=== PATIENT | male | born 1960 | race Caucasian/White ===

== ENCOUNTER 2018-04-22 15:10 | Inpatient (IN) | payer MEDICAID ==
[2018-04-17 12:02] VITALS: BMI 25.1
[2018-04-22] MEDS ORDERED: Bisacodyl 5mg EC Tab PO PRN (22:17)
--- NOTE | 2018-04-22 22:51 | CP.PCM.HP ---
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 He was initially admitted to [facility], did not meet criteria for TPA. Had full workup at [facility], and is now here for acute rehab. Denies CP/SOB. Denies n/v/d. States he has been constipated for several days. ROS: 14 systems reviewed, negative other than HPI MHx/SHx: None prior to this CVA Allergies: NKDA Medications: Per discharge med rec Family Hx: Several brothers with CAD/CABG, CVA, HLD Social Hx: Lives with family, tobacco use 20 years ago, no EtOH Surrogate Dec Mkr: , info on chart Present on Admission - Present on Admission Any Indicators Present on Admission: No Past Patient History - Past Medical History & Family History Past Medical History?: No - Past Social History Smoking Status: Never Smoked - CARDIAC Hx Cardiac Disorders: No - PULMONARY Hx Respiratory Disorders: No - NEUROLOGICAL HX Cerebrovascular Accident: Yes - HEENT Hx HEENT Problems: No - RENAL Hx Chronic Kidney Disease: No - ENDOCRINE/METABOLIC Hx Endocrine Disorders: No - HEMATOLOGICAL/ONCOLOGICAL Hx Blood Disorders: No - INTEGUMENTARY Hx Dermatological Problems: No - MUSCULOSKELETAL/RHEUMATOLOGICAL Hx Musculoskeletal Disorders: No Hx Falls: No - GASTROINTESTINAL Hx Gastrointestinal Disorders: No - GENITOURINARY/GYNECOLOGICAL Hx Genitourinary Disorders: No - PSYCHIATRIC Hx Psychophysiologic Disorder: No Hx Substance Use: No - SURGICAL HISTORY Hx Surgeries: No - ANESTHESIA Hx Anesthesia: No Meds Allergies/Adverse Reactions: Allergies Allergy/AdvReac Type Severity Reaction Status Date / Time No Known Allergies Allergy Verified 04/22/18 21:20 Physical Exam - Constitutional Appears: No Acute Distress - Head Exam Head Exam: ATRAUMATIC, NORMOCEPHALIC - Eye Exam Eye Exam: EOMI, PERRL - ENT Exam ENT Exam: Mucous Membranes Moist - Neck Exam Neck exam: Positive for: Full Rom - Respiratory Exam Respiratory Exam: Clear to Auscultation Bilateral, NORMAL BREATHING PATTERN - Cardiovascular Exam Cardiovascular Exam: REGULAR RHYTHM, +S1, +S2 - GI/Abdominal Exam GI & Abdominal Exam: Normal Bowel Sounds, Soft - Extremities Exam Extremities exam: Positive for: full ROM, normal inspection - Neurological Exam Neurological exam: Alert, Motor Sensory Deficit, Oriented x3 Additional comments: LUE and LLE with 0/5 strength, no movement. - Psychiatric Exam Psychiatric exam: Normal Affect, Normal Mood - Skin Skin Exam: Dry, Warm Assessment & Plan (1) Status post cerebrovascular accident Assessment and Plan: 57 y/o male with R MCA CVA with L sided hemiparesis. -Admit for acute rehab -Rehab/PT consult -? repeat of swallow study; currently crushed medications and pureed diet -Cont ASA, Statin -PRN dulcolax for constipation -SC lovenox for DVT PPx Status: Acute (2) HLD (hyperlipidemia) Status: Acute (3) DVT prophylaxis Status: Acute
[2018-04-22] MEDS: Bacitracin/Neomycin/Polymyxin 30GM OINT TOP SCH (23:46)
[2018-04-23 06:35] LABS: HEMOGLOBIN 14.3 g/dL (12.0-18.0); MEAN CELL VOLUME 82.3 fl (80.0-94.0); MEAN CORPUSCULAR HEMOGLOBIN 27.9 pg (27.0-31.0); MEAN CORPUSCULAR HGB CONC 33.9 g/dL (33.0-37.0); RBC 5.15 Mil/uL (4.40-5.90); RED CELL DISTRIBUTION WIDTH 12.9 % (11.5-14.5); WHITE BLOOD COUNT 9.6 K/uL (4.8-10.8)
[2018-04-23 06:53] LABS: BLOOD UREA NITROGEN 19 mg/dl (9-20); CALCIUM 11.6 mg/dL (8.4-10.2); GFR NON-AFRICAN AMERICAN > 60
[2018-04-23] MEDS: Enoxaparin 40 mg Syringe SC SCH (09:27)
[2018-04-23] MEDS: Bacitracin/Neomycin/Polymyxin 30GM OINT TOP SCH ×2 (09:27→17:14)
--- NOTE | 2018-04-23 12:21 | PSY.TMCNF ---
Nursing - Vital Signs Vital Signs (Last 8 hours): Vital Signs 04/23/18 08:33 Temperature 97.9 F Pulse Rate 58 L Respiratory 19 Rate Blood Pressure 155/97 H O2 Sat by Pulse 99 Oximetry - Medications/Other Issues Comment: To follow as per nutrition protocol - Bladder Management Bladder Pattern: Normal Voiding Method: Urinal, Diaper - Bowel Management Bowel Pattern: Normal, Constipated Physical Therapy - Transfers Sit to Stand: Maximum Assistance - Ambulation Level of Assistance: Maximum Assistance, Dependent - Assessment/Plan Assessment: Mark Hager presents with 1.) moderate cognitive deficits characterized by impaired memory, orientation, problem solving, reasoning, direction following, ability to answer yes/no and open-ended questions, and impaired insight negatively impacting his functional independence; 2.) moderate dysarthria characterized by L facial weakness with impaired articulatory precision and hoarse vocal quality with low vocal volume all negatively impacting intelligibility; and 3.) moderate oral dysphagia characterized by L facial weakness resulting in impaired bolus formation, mastication, and A-P transit for solid consistencies with impaired oral clearance; moderate stasis observed with solids which pt demonstrated minimal awareness of. Pharyngeally, pt demonstrated timely swallow initiation with appropriate laryngeal elevation and no overt s/s aspiration on PO trials tested, though pt is at risk for aspiration secondary to oral and cognitive deficits. Recommend maintenance of puree/thin liquids at this time. Pt would benefit from speech and dysphagia tx for improved intelligibility, cognition, and swallow function. - Provider License Number: [id number] Occupational Therapy - Arousal/Attention/Orientation Patient Orientation: Person, Place - Assessment/Plan Assessment: Mark Hager presents with 1.) moderate cognitive deficits characterized by impaired memory, orientation, problem solving, reasoning, direction following, ability to answer yes/no and open-ended questions, and impaired insight negatively impacting his functional independence; 2.) moderate dysarthria characterized by L facial weakness with impaired articulatory precision and hoarse vocal quality with low vocal volume all negatively impacting intelligibility; and 3.) moderate oral dysphagia characterized by L facial weakness resulting in impaired bolus formation, mastication, and A-P transit for solid consistencies with impaired oral clearance; moderate stasis observed with solids which pt demonstrated minimal awareness of. Pharyngeally, pt demonstrated timely swallow initiation with appropriate laryngeal elevation and no overt s/s aspiration on PO trials tested, though pt is at risk for aspiration secondary to oral and cognitive deficits. Recommend maintenance of puree/thin liquids at this time. Pt would benefit from speech and dysphagia tx for improved intelligibility, cognition, and swallow function. Speech Therapy - Consult Information Patient on Program: Yes Medical Diagnosis: CVA Treatment Diagnosis: -moderate cognitive deficits. -moderate dysarthria. - moderate oral dysphagia - Assessment Receptive Language Impairment: Moderate Problem Solving Impairment: Moderate Memory Impairment: Moderate Speech/Articulation Impairment: Moderate Dysphagia/Swallowing Impairment: Moderate Comment: puree/thin liquids - Plan Assessment: Mark Hager presents with 1.) moderate cognitive deficits characterized by impaired memory, orientation, problem solving, reasoning, direction following, ability to answer yes/no and open-ended questions, and impaired insight negatively impacting his functional independence; 2.) moderate dysarthria characterized by L facial weakness with impaired articulatory precision and hoarse vocal quality with low vocal volume all negatively impacting intelligibility; and 3.) moderate oral dysphagia characterized by L facial weakness resulting in impaired bolus formation, mastication, and A-P transit for solid consistencies with impaired oral clearance; moderate stasis observed with solids which pt demonstrated minimal awareness of. Pharyngeally, pt demonstrated timely swallow initiation with appropriate laryngeal elevation and no overt s/s aspiration on PO trials tested, though pt is at risk for aspiration secondary to oral and cognitive deficits. Recommend maintenance of puree/thin liquids at this time. Pt would benefit from speech and dysphagia tx for improved intelligibility, cognition, and swallow function. Plan: Continue Dysphagia Therapy, Continue Speech/Language Therapy Frequency: 3-5 times per week Duration: 1 week Goals/Timeframe: Please see IE completed 04/23/18 for complete goals/POC Recommendations: -Speech and dysphagia tx 3-5x/week. -Puree/thin liquids - Provider Therapist: Anju Petersen License Number: [id number] Recreational Therapy - Assessment Assessment/Plan: Mark Hager presents with 1.) moderate cognitive deficits characterized by impaired memory, orientation, problem solving, reasoning, direction following, ability to answer yes/no and open-ended questions, and impaired insight negatively impacting his functional independence; 2.) moderate dysarthria characterized by L facial weakness with impaired articulatory precision and hoarse vocal quality with low vocal volume all negatively impacting intelligibility; and 3.) moderate oral dysphagia characterized by L facial weakness resulting in impaired bolus formation, mastication, and A-P transit for solid consistencies with impaired oral clearance; moderate stasis observed with solids which pt demonstrated minimal awareness of. Pharyngeally, pt demonstrated timely swallow initiation with appropriate laryngeal elevation and no overt s/s aspiration on PO trials tested, though pt is at risk for aspiration secondary to oral and cognitive deficits. Recommend maintenance of puree/thin liquids at this time. Pt would benefit from speech and dysphagia tx for improved intelligibility, cognition, and swallow function. Nutrition - Current Diet Current Diet/ Supplement/ Feedings: Heart healthy pureed thin liquids - Appetite Percent Meal Consumed: 75-100% - Assessment/Goals/Time Frame Assessment/Goals/Time Frame: To follow as per nutrition protocol - Provider Provider: Yue Villegas RD Case Management - Discharge Plan Discharge Plan: Home with significant other/family Rehabilitation Plan - Treatment Plan Treatment Plan: Physical Therapy, Occupational Therapy, Speech, Dietary, Patient /Family Education - Recommendation Recommendation: Physical Therapy, Occupational Therapy, Speech, Dietary, Patient /Family Education - Discharge Plan Discharge to: Subacute
--- NOTE | 2018-04-23 13:11 | CP.PCM.PN ---
Subjective - Date & Time of Evaluation Date of Evaluation: 04/23/18 Time of Evaluation: 12:00 - Subjective Subjective: no acute complaints Objective - Vital Signs/Intake and Output Vital Signs (last 24 hours): Temp Pulse Resp BP Pulse Ox 97.9 F 58 L 19 155/97 H 99 04/23/18 08:33 04/23/18 08:33 04/23/18 08:33 04/23/18 08:33 04/23/18 08:33 - Medications Medications: Current Medications Aspirin (Aspirin Chewable) 81 mg PO DAILY [facility] Last Admin: 04/23/18 08:42 Dose: 81 mg Atorvastatin Calcium (Lipitor) 40 mg PO HS [facility] Bisacodyl (Dulcolax) 5 mg PO DAILY PRN PRN Reason: Constipation Enalapril Maleate (Vasotec) 20 mg PO DAILY [facility] Last Admin: 04/23/18 08:42 Dose: 20 mg Enoxaparin Sodium (Lovenox) 40 mg SC DAILY [facility] PRN Reason: Protocol Last Admin: 04/23/18 09:27 Dose: 40 mg Neomycin/Polymyxin/Bacitracin (Neosporin Antibiotic Oint) 1 applic TOP BID [facility] Last Admin: 04/23/18 09:27 Dose: 1 applic - Labs Labs: 04/23/18 05:30 04/23/18 05:30 - Head Exam Head Exam: ATRAUMATIC, NORMAL INSPECTION, NORMOCEPHALIC - Eye Exam Eye Exam: EOMI, Normal appearance, PERRL Pupil Exam: NORMAL ACCOMODATION - ENT Exam ENT Exam: Mucous Membranes Moist, Normal Exam - Neck Exam Neck Exam: Full ROM, Normal Inspection - Respiratory Exam Respiratory Exam: Clear to Ausculation Bilateral, NORMAL BREATHING PATTERN - Cardiovascular Exam Cardiovascular Exam: REGULAR RHYTHM - GI/Abdominal Exam GI & Abdominal Exam: Soft, Normal Bowel Sounds - Rectal Exam Rectal Exam: NORMAL INSPECTION - Exam External exam: NORMAL EXTERNAL EXAM - Extremities Exam Extremities Exam: Full ROM - Back Exam Back Exam: NORMAL INSPECTION - Neurological Exam Neurological Exam: Alert, Awake Neuro motor strength exam: Left Upper Extremity: 0, Right Upper Extremity: 3, Left Lower Extremity: 0, Right Lower Extremity: 3 - Psychiatric Exam Psychiatric exam: Normal Affect, Normal Mood - Skin Skin Exam: Dry, Intact Assessment and Plan (1) DVT prophylaxis Status: Acute (2) HLD (hyperlipidemia) Status: Acute (3) Status post cerebrovascular accident Assessment & Plan: plan for physical, occupational rec and speech therapy Status: Acute
--- NOTE | 2018-04-23 13:12 | PCM.OPOC ---
Physiatry Overall Plan of Care - Overall Plan of Care Estimated Length of Stay in Weeks: 3 Rehab Impairment: Mobility, Gait, Cognition, Speech, Balance, Coordination Etiologic Diagnosis: Cerebrovascular Accident Rehab/Medical Prognosis: Fair - Anticipated Interventions Physical Therapy:: Yes Occupational Therapy:: Yes Speech Therapy:: Yes Recreational Therapy:: Yes - Therapy Goals Bed Mobility: Supervision Ambulation: Contact Guard Functional Positional Changes:: Supervision - Functional Outcomes Functional Outcomes: fair - Discharge Plan Identification of Barriers to Discharge: Cognition Discharge Destination: Subacute
--- NOTE | 2018-04-23 13:15 | CP.PCM.CON ---
History of Present Illness - History of Present Illness History of Present Illness: 57 year old patient with left hemiplegia secondary to CVA, R MCA Review of Systems - Neurological Neurological: Abnormal Gait, Lack of Coordination, Weakness Past Patient History - Past Medical History & Family History Past Medical History?: No - Past Social History Smoking Status: Never Smoked - CARDIAC Hx Cardiac Disorders: No - PULMONARY Hx Respiratory Disorders: No - NEUROLOGICAL HX Cerebrovascular Accident: Yes - HEENT Hx HEENT Problems: No - RENAL Hx Chronic Kidney Disease: No - ENDOCRINE/METABOLIC Hx Endocrine Disorders: No - HEMATOLOGICAL/ONCOLOGICAL Hx Blood Disorders: No - INTEGUMENTARY Hx Dermatological Problems: No - MUSCULOSKELETAL/RHEUMATOLOGICAL Hx Falls: Yes - GASTROINTESTINAL Hx Gastrointestinal Disorders: No - GENITOURINARY/GYNECOLOGICAL Hx Genitourinary Disorders: No - PSYCHIATRIC Hx Substance Use: No - SURGICAL HISTORY Hx Surgeries: No - ANESTHESIA Hx Anesthesia: No Meds Allergies/Adverse Reactions: Allergies Allergy/AdvReac Type Severity Reaction Status Date / Time No Known Allergies Allergy Verified 04/22/18 21:20 - Medications Medications: Current Medications Aspirin (Aspirin Chewable) 81 mg PO DAILY [facility] Last Admin: 04/23/18 08:42 Dose: 81 mg Atorvastatin Calcium (Lipitor) 40 mg PO HS [facility] Bisacodyl (Dulcolax) 5 mg PO DAILY PRN PRN Reason: Constipation Enalapril Maleate (Vasotec) 20 mg PO DAILY [facility] Last Admin: 04/23/18 08:42 Dose: 20 mg Enoxaparin Sodium (Lovenox) 40 mg SC DAILY [facility] PRN Reason: Protocol Last Admin: 04/23/18 09:27 Dose: 40 mg Neomycin/Polymyxin/Bacitracin (Neosporin Antibiotic Oint) 1 applic TOP BID [facility] Last Admin: 04/23/18 09:27 Dose: 1 applic Physical Exam - Head Exam Head Exam: ATRAUMATIC, NORMAL INSPECTION, NORMOCEPHALIC - Eye Exam Eye Exam: EOMI, Normal appearance, PERRL Pupil Exam: NORMAL ACCOMODATION, PERRL - ENT Exam ENT Exam: Mucous Membranes Moist, Normal Exam - Neck Exam Neck exam: Positive for: Normal Inspection - Respiratory Exam Respiratory Exam: Clear to Auscultation Bilateral, NORMAL BREATHING PATTERN - Cardiovascular Exam Cardiovascular Exam: REGULAR RHYTHM - GI/Abdominal Exam GI & Abdominal Exam: Normal Bowel Sounds - Rectal Exam Rectal Exam: NORMAL INSPECTION - Exam External exam: NORMAL EXTERNAL EXAM - Extremities Exam Extremities exam: Positive for: normal inspection - Back Exam Back exam: NORMAL INSPECTION - Neurological Exam Neurological exam: Alert, CN II-XII Intact Additional comments: left hemiplegia left sided weakness - Psychiatric Exam Psychiatric exam: Normal Affect, Normal Mood - Skin Skin Exam: Normal Color Results - Vital Signs Recent Vital Signs: Last Vital Signs Temp 97.9 F 04/23/18 08:33 Pulse 58 L 04/23/18 08:33 Resp 19 04/23/18 08:33 BP 155/97 H 04/23/18 08:33 Pulse Ox 99 04/23/18 08:33 - Labs Result Diagrams: 04/23/18 05:30 04/23/18 05:30 Labs: Laboratory Results - last 24 hr 04/23/18 04/23/18 05:30 05:30 WBC 9.6 RBC 5.15 Hgb 14.3 Hct 42.3 MCV 82.3 MCH 27.9 MCHC 33.9 RDW 12.9 Plt Count 189 Sodium 140 Potassium 3.8 Chloride 104 Carbon Dioxide 30 Anion Gap 10 BUN 19 Creatinine 1.0 Est GFR ( Amer) > 60 Est GFR (Non-Af Amer) > 60 Random Glucose 100 Calcium 11.6 H Assessment & Plan (1) DVT prophylaxis Status: Acute (2) HLD (hyperlipidemia) Status: Acute (3) Status post cerebrovascular accident Assessment and Plan: plan for overall plan of care written, physical, occupational, rec and speech therapy Status: Acute
--- NOTE | 2018-04-23 13:21 | CP.PCM.CON ---
History of Present Illness - History of Present Illness History of Present Illness: Neurology Consultation Note: Mr. Hager is a 57-year-old man who had a large right MCA acute ischemic stroke on 04/17 and is now in acute rehab for recovery. He was started on aspirin and high dose statin for secondary stroke prevention. He has significant left sided deficits. Neurology was consulted to assist with the management and care. Review of Systems - Review of Systems All systems: reviewed and no additional remarkable complaints except Past Patient History - Past Medical History & Family History Past Medical History?: No - Past Social History Smoking Status: Never Smoked - CARDIAC Hx Cardiac Disorders: No - PULMONARY Hx Respiratory Disorders: No - NEUROLOGICAL HX Cerebrovascular Accident: Yes - HEENT Hx HEENT Problems: No - RENAL Hx Chronic Kidney Disease: No - ENDOCRINE/METABOLIC Hx Endocrine Disorders: No - HEMATOLOGICAL/ONCOLOGICAL Hx Blood Disorders: No - INTEGUMENTARY Hx Dermatological Problems: No - MUSCULOSKELETAL/RHEUMATOLOGICAL Hx Falls: Yes - GASTROINTESTINAL Hx Gastrointestinal Disorders: No - GENITOURINARY/GYNECOLOGICAL Hx Genitourinary Disorders: No - PSYCHIATRIC Hx Substance Use: No - SURGICAL HISTORY Hx Surgeries: No - ANESTHESIA Hx Anesthesia: No Meds Allergies/Adverse Reactions: Allergies Allergy/AdvReac Type Severity Reaction Status Date / Time No Known Allergies Allergy Verified 04/22/18 21:20 - Medications Medications: Current Medications Aspirin (Aspirin Chewable) 81 mg PO DAILY [facility] Last Admin: 04/23/18 08:42 Dose: 81 mg Atorvastatin Calcium (Lipitor) 40 mg PO HS [facility] Bisacodyl (Dulcolax) 5 mg PO DAILY PRN PRN Reason: Constipation Enalapril Maleate (Vasotec) 20 mg PO DAILY [facility] Last Admin: 04/23/18 08:42 Dose: 20 mg Enoxaparin Sodium (Lovenox) 40 mg SC DAILY [facility] PRN Reason: Protocol Last Admin: 04/23/18 09:27 Dose: 40 mg Neomycin/Polymyxin/Bacitracin (Neosporin Antibiotic Oint) 1 applic TOP BID [facility] Last Admin: 04/23/18 09:27 Dose: 1 applic Physical Exam - Neurological Exam Neurological exam: CN II-XII Intact, Oriented x3 Additional comments: Dysarthria noted. Left side facial droop, hemiplegia, hemisensory loss, reflexes are brisk with upgoing plantar responses. NIHSS = 12 Results - Vital Signs Recent Vital Signs: Last Vital Signs Temp 97.9 F 04/23/18 08:33 Pulse 58 L 04/23/18 08:33 Resp 19 04/23/18 08:33 BP 155/97 H 04/23/18 08:33 Pulse Ox 99 04/23/18 08:33 - Labs Result Diagrams: 04/23/18 05:30 04/23/18 05:30 Labs: Laboratory Results - last 24 hr 04/23/18 04/23/18 05:30 05:30 WBC 9.6 RBC 5.15 Hgb 14.3 Hct 42.3 MCV 82.3 MCH 27.9 MCHC 33.9 RDW 12.9 Plt Count 189 Sodium 140 Potassium 3.8 Chloride 104 Carbon Dioxide 30 Anion Gap 10 BUN 19 Creatinine 1.0 Est GFR ( Amer) > 60 Est GFR (Non-Af Amer) > 60 Random Glucose 100 Calcium 11.6 H Assessment & Plan (1) Status post cerebrovascular accident Assessment and Plan: Continue aspirin 81 mg daily and Lipitor 40 for secondary stroke prevention. Normalize BP. PT/OT per the care plan. DVT Px and hydration are recommended. The patient is a young man, with no significant past medical history, and origin of the stroke is still not determined. It may be cryptogenic stroke of cardio-embolic origin with possible cryptogenic atrial fibrillation. I recommend cardiac consultation with possible insertion of Linq device. Neurology will follow. Thank you. Status: Acute
--- NOTE | 2018-04-23 15:58 | CP.PCM.PN ---
Subjective - Date & Time of Evaluation Date of Evaluation: 04/23/18 Time of Evaluation: 16:00 - Subjective Subjective: Patient seen and examined . Sitting in the wheelchair in NAD. States that has not been able to sleep for 4 days. Denies any pain or discomfort. No acute issues overnight Participating with PT Objective - Vital Signs/Intake and Output Vital Signs (last 24 hours): Temp Pulse Resp BP Pulse Ox 97.9 F 58 L 19 155/97 H 99 04/23/18 08:33 04/23/18 08:33 04/23/18 08:33 04/23/18 08:33 04/23/18 08:33 - Medications Medications: Current Medications Aspirin (Aspirin Chewable) 81 mg PO DAILY [facility] Last Admin: 04/23/18 08:42 Dose: 81 mg Atorvastatin Calcium (Lipitor) 40 mg PO HS [facility] Bisacodyl (Dulcolax) 5 mg PO DAILY PRN PRN Reason: Constipation Enalapril Maleate (Vasotec) 20 mg PO DAILY [facility] Last Admin: 04/23/18 08:42 Dose: 20 mg Enoxaparin Sodium (Lovenox) 40 mg SC DAILY [facility] PRN Reason: Protocol Last Admin: 04/23/18 09:27 Dose: 40 mg Neomycin/Polymyxin/Bacitracin (Neosporin Antibiotic Oint) 1 applic TOP BID [facility] Last Admin: 04/23/18 09:27 Dose: 1 applic - Labs Labs: 04/23/18 05:30 04/23/18 05:30 - Constitutional Appears: Non-toxic, No Acute Distress - Head Exam Head Exam: ATRAUMATIC, NORMOCEPHALIC - Eye Exam Eye Exam: EOMI, PERRL Pupil Exam: NORMAL ACCOMODATION - ENT Exam ENT Exam: Mucous Membranes Moist, Normal Exam - Neck Exam Neck Exam: Full ROM - Respiratory Exam Respiratory Exam: Clear to Ausculation Bilateral, NORMAL BREATHING PATTERN. absent: Rales, Rhonchi, Wheezes - Cardiovascular Exam Cardiovascular Exam: REGULAR RHYTHM, RRR, +S1, +S2. absent: JVD - GI/Abdominal Exam GI & Abdominal Exam: Soft, Normal Bowel Sounds. 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 transferred to acute rehab for PT. Denies CP/SOB. Denies n/v/ d. Able to have a BM today but states that has not been able to sleep for 4 days 1. Status post cerebrovascular accident physiatry consult Continue PT /OT / speech therapy On ASA, Statin BP control 2. Hypertension BP uncontrolled Continue Enalapril 20 mg po and start Norvasc 5 mg po daily 3. HLD (hyperlipidemia) on statin 4.DVT prophylaxis lovenox
[2018-04-24] MEDS: Enoxaparin 40 mg Syringe SC SCH (09:17)
[2018-04-24] MEDS: Bacitracin/Neomycin/Polymyxin 30GM OINT TOP SCH ×2 (09:18→16:43)
--- NOTE | 2018-04-24 10:35 | CP.PCM.CON ---
History of Present Illness - History of Present Illness History of Present Illness: cardiology consult note for Dr. 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 Eevent occured on 04/17/2018. [facility] for acute rehab. PMHx: denies ALL: NKDA Meds: no meds prior to admission at [facility] [place], current meds as per med rec Psurghx: Family Hx: brothers with CAD, Stroke, HLD Social Hx: former smoker, no abuse for >20 years, denies drugs Past Patient History - Past Medical History & Family History Past Medical History?: No - Past Social History Smoking Status: Never Smoked - CARDIAC Hx Cardiac Disorders: No - PULMONARY Hx Respiratory Disorders: No - NEUROLOGICAL HX Cerebrovascular Accident: Yes - HEENT Hx HEENT Problems: No - RENAL Hx Chronic Kidney Disease: No - ENDOCRINE/METABOLIC Hx Endocrine Disorders: No - HEMATOLOGICAL/ONCOLOGICAL Hx Blood Disorders: No - INTEGUMENTARY Hx Dermatological Problems: No - MUSCULOSKELETAL/RHEUMATOLOGICAL Hx Falls: Yes - GASTROINTESTINAL Hx Gastrointestinal Disorders: No - GENITOURINARY/GYNECOLOGICAL Hx Genitourinary Disorders: No - PSYCHIATRIC Hx Substance Use: No - SURGICAL HISTORY Hx Surgeries: No - ANESTHESIA Hx Anesthesia: No Meds Allergies/Adverse Reactions: Allergies Allergy/AdvReac Type Severity Reaction Status Date / Time No Known Allergies Allergy Verified 04/22/18 21:20 - Medications Medications: Current Medications Aspirin (Aspirin Chewable) 81 mg PO DAILY [facility] Last Admin: 04/24/18 09:17 Dose: 81 mg Atorvastatin Calcium (Lipitor) 40 mg PO HS [facility] Last Admin: 04/23/18 21:28 Dose: 40 mg Bisacodyl (Dulcolax) 5 mg PO DAILY PRN PRN Reason: Constipation Enalapril Maleate (Vasotec) 20 mg PO DAILY [facility] Last Admin: 04/24/18 09:18 Dose: 20 mg Enoxaparin Sodium (Lovenox) 40 mg SC DAILY [facility] PRN Reason: Protocol Last Admin: 04/24/18 09:17 Dose: 40 mg Neomycin/Polymyxin/Bacitracin (Neosporin Antibiotic Oint) 1 applic TOP BID [facility] Last Admin: 04/24/18 09:18 Dose: 1 applic Physical Exam - Constitutional Appears: Non-toxic, No Acute Distress - Head Exam Head Exam: ATRAUMATIC, NORMOCEPHALIC - ENT Exam ENT Exam: Mucous Membranes Moist - Respiratory Exam Respiratory Exam: Clear to Auscultation Bilateral, NORMAL BREATHING PATTERN. absent: Rales, Rhonchi, Wheezes - Cardiovascular Exam Cardiovascular Exam: REGULAR RHYTHM, RRR, +S1, +S2. absent: JVD, Rubs - Neurological Exam Neurological exam: Alert, Oriented x3 Additional comments: left facial droop LUE paresis Results - Vital Signs Recent Vital Signs: Last Vital Signs Temp 97.1 F L 04/24/18 08:41 Pulse 56 L 04/24/18 08:41 Resp 19 04/24/18 08:41 BP 179/99 H 04/24/18 08:41 Pulse Ox 96 04/24/18 08:41 - Labs Result Diagrams: 04/23/18 05:30 04/23/18 05:30 Assessment & Plan (1) Status post cerebrovascular accident Status: Acute (2) Hypertension Status: Acute (3) HLD (hyperlipidemia) Status: Chronic
--- NOTE | 2018-04-24 17:34 | CP.PCM.PN ---
Subjective - Date & Time of Evaluation Date of Evaluation: 04/24/18 Time of Evaluation: 13:00 - Subjective Subjective: no acute complaints at present Objective - Vital Signs/Intake and Output Vital Signs (last 24 hours): Temp Pulse Resp BP Pulse Ox 97.1 F L 56 L 19 179/99 H 96 04/24/18 08:41 04/24/18 08:41 04/24/18 08:41 04/24/18 08:41 04/24/18 08:41 - Medications Medications: Current Medications Aspirin (Aspirin Chewable) 81 mg PO DAILY [facility] Last Admin: 04/24/18 09:17 Dose: 81 mg Atorvastatin Calcium (Lipitor) 40 mg PO HS [facility] Last Admin: 04/23/18 21:28 Dose: 40 mg Bisacodyl (Dulcolax) 5 mg PO DAILY PRN PRN Reason: Constipation Enalapril Maleate (Vasotec) 20 mg PO DAILY [facility] Last Admin: 04/24/18 09:18 Dose: 20 mg Enoxaparin Sodium (Lovenox) 40 mg SC DAILY [facility] PRN Reason: Protocol Last Admin: 04/24/18 09:17 Dose: 40 mg Neomycin/Polymyxin/Bacitracin (Neosporin Antibiotic Oint) 1 applic TOP BID [facility] Last Admin: 04/24/18 16:43 Dose: 1 applic - Labs Labs: 04/23/18 05:30 04/23/18 05:30 - Head Exam Head Exam: ATRAUMATIC, NORMAL INSPECTION, NORMOCEPHALIC - Eye Exam Eye Exam: EOMI, Normal appearance Pupil Exam: NORMAL ACCOMODATION, PERRL - ENT Exam ENT Exam: Mucous Membranes Moist - Neck Exam Neck Exam: Full ROM - Respiratory Exam Respiratory Exam: Clear to Ausculation Bilateral - Cardiovascular Exam Cardiovascular Exam: REGULAR RHYTHM - GI/Abdominal Exam GI & Abdominal Exam: Soft, Normal Bowel Sounds - Rectal Exam Rectal Exam: NORMAL INSPECTION - Exam External exam: NORMAL EXTERNAL EXAM - Extremities Exam Extremities Exam: Full ROM, Normal Capillary Refill, Normal Inspection - Back Exam Back Exam: NORMAL INSPECTION - Neurological Exam Neurological Exam: Alert, Awake Neuro motor strength exam: Left Upper Extremity: 0, Right Upper Extremity: 3, Left Lower Extremity: 5 (increase in tone), Right Lower Extremity: 3 - Psychiatric Exam Psychiatric exam: Normal Affect, Normal Mood - Skin Skin Exam: Normal Color Assessment and Plan (1) DVT prophylaxis Status: Acute (2) HLD (hyperlipidemia) Status: Chronic (3) Status post cerebrovascular accident Assessment & Plan: physical, occupational therapy discussed patient with Dr Heck neurology to ask for cardiology consult. continue present program Status: Acute
[2018-04-25] MEDS: Enoxaparin 40 mg Syringe SC SCH (09:05)
[2018-04-25] MEDS: Bacitracin/Neomycin/Polymyxin 30GM OINT TOP SCH ×2 (09:06→17:28)
--- NOTE | 2018-04-25 10:24 | CP.PCM.PN ---
Subjective - Date & Time of Evaluation Date of Evaluation: 04/25/18 Time of Evaluation: 10:21 - Subjective Subjective: pt doing well no complaints hd stable nad Objective - Vital Signs/Intake and Output Vital Signs (last 24 hours): Temp Pulse Resp BP Pulse Ox 97.3 F L 61 18 180/88 H 98 04/25/18 08:10 04/25/18 08:10 04/25/18 08:10 04/25/18 08:10 04/25/18 08:10 - Medications Medications: Current Medications Aspirin (Aspirin Chewable) 81 mg PO DAILY [facility] Last Admin: 04/25/18 09:05 Dose: 81 mg Atorvastatin Calcium (Lipitor) 40 mg PO HS [facility] Last Admin: 04/24/18 21:32 Dose: 40 mg Bisacodyl (Dulcolax) 5 mg PO DAILY PRN PRN Reason: Constipation Enalapril Maleate (Vasotec) 20 mg PO DAILY [facility] Last Admin: 04/25/18 09:05 Dose: 20 mg Enoxaparin Sodium (Lovenox) 40 mg SC DAILY [facility] PRN Reason: Protocol Last Admin: 04/25/18 09:05 Dose: 40 mg Neomycin/Polymyxin/Bacitracin (Neosporin Antibiotic Oint) 1 applic TOP BID [facility] Last Admin: 04/25/18 09:06 Dose: 1 applic - Labs Labs: 04/23/18 05:30 04/23/18 05:30 - Constitutional Appears: Non-toxic, No Acute Distress - Head Exam Head Exam: ATRAUMATIC, NORMOCEPHALIC - Eye Exam Eye Exam: EOMI, Normal appearance - ENT Exam ENT Exam: Mucous Membranes Moist, Normal Oropharynx - Neck Exam Neck Exam: Normal Inspection - Respiratory Exam Respiratory Exam: Clear to Ausculation Bilateral, NORMAL BREATHING PATTERN - Cardiovascular Exam Cardiovascular Exam: RRR, +S1, +S2 - GI/Abdominal Exam GI & Abdominal Exam: Soft, Normal Bowel Sounds - Extremities Exam Extremities Exam: Normal Capillary Refill - Neurological Exam Neurological Exam: Alert, Awake - Psychiatric Exam Psychiatric exam: Flat Affect, Normal Mood - Skin Skin Exam: Dry, Warm Assessment and Plan - Assessment and Plan (Free Text) Plan: 57 y/o male with no diagnosed chronic medical illnesses who suffered a R MCA stroke with subsequent LUE/LLE hemiparesis on 04/17, initially admitted to [facility] transferred to acute rehab for PT. Denies CP/SOB. Denies n/v/ d. Able to have a BM today but states that has not been able to sleep for 4 days 1. Status post cerebrovascular accident physiatry consult Continue PT /OT / speech therapy On ASA, Statin BP control 2. Hypertension BP uncontrolled Continue Enalapril 20 mg po and start Norvasc 5 mg po daily 3. HLD (hyperlipidemia) on statin 4.DVT prophy
[2018-04-26 06:59] LABS: HEMOGLOBIN 14.2 g/dL (12.0-18.0); MEAN CELL VOLUME 83.8 fl (80.0-94.0); MEAN CORPUSCULAR HEMOGLOBIN 27.3 pg (27.0-31.0); MEAN CORPUSCULAR HGB CONC 32.6 g/dL (33.0-37.0); RBC 5.21 Mil/uL (4.40-5.90); RED CELL DISTRIBUTION WIDTH 12.8 % (11.5-14.5); WHITE BLOOD COUNT 8.5 K/uL (4.8-10.8)
[2018-04-26 07:20] LABS: BLOOD UREA NITROGEN 18 mg/dl (9-20); CALCIUM 12.2 mg/dL (8.4-10.2); GFR NON-AFRICAN AMERICAN > 60
[2018-04-26] MEDS: Enoxaparin 40 mg Syringe SC SCH (08:11)
[2018-04-26] MEDS: Bacitracin/Neomycin/Polymyxin 30GM OINT TOP SCH ×2 (08:11→17:47)
[2018-04-27] MEDS: Bacitracin/Neomycin/Polymyxin 30GM OINT TOP SCH ×2 (09:25→17:00)
[2018-04-27] MEDS: Enoxaparin 40 mg Syringe SC SCH (09:26)
--- NOTE | 2018-04-27 17:23 | CP.PCM.PN ---
Subjective - Date & Time of Evaluation Date of Evaluation: 04/27/18 Time of Evaluation: 17:22 - Subjective Subjective: Mr. Hager was seen and examined today at bedside. His family was present. He had no new complaints. He continues to have right side hemiplegia. Objective - Vital Signs/Intake and Output Vital Signs (last 24 hours): Temp Pulse Resp BP Pulse Ox 97.2 F L 66 18 149/89 97 04/27/18 08:00 04/27/18 08:00 04/27/18 08:00 04/27/18 08:00 04/27/18 08:00 - Medications Medications: Current Medications Aspirin (Aspirin Chewable) 81 mg PO DAILY [facility] Last Admin: 04/27/18 09:26 Dose: 81 mg Atorvastatin Calcium (Lipitor) 40 mg PO HS [facility] Last Admin: 04/26/18 21:48 Dose: 40 mg Bisacodyl (Dulcolax) 5 mg PO DAILY PRN PRN Reason: Constipation Enalapril Maleate (Vasotec) 20 mg PO DAILY [facility] Last Admin: 04/27/18 09:26 Dose: 20 mg Enoxaparin Sodium (Lovenox) 40 mg SC DAILY [facility] PRN Reason: Protocol Last Admin: 04/27/18 09:26 Dose: 40 mg Neomycin/Polymyxin/Bacitracin (Neosporin Antibiotic Oint) 1 applic TOP BID [facility] Last Admin: 04/27/18 09:25 Dose: 1 applic - Labs Labs: 04/26/18 05:20 04/26/18 05:20 - Neurological Exam Additional comments: Neurologically unchanged compared with previous examination. Assessment and Plan (1) Status post cerebrovascular accident Assessment & Plan: Large right MCA stroke syndrome. Will continue aspirin and statin for secondary stroke prevention. PT/OT per rehab team. Neurology will follow. Status: Acute
[2018-04-28] MEDS: Enoxaparin 40 mg Syringe SC SCH ×2 (08:55→12:26)
[2018-04-28] MEDS: Bacitracin/Neomycin/Polymyxin 30GM OINT TOP SCH ×2 (08:55→17:11)
--- NOTE | 2018-04-28 18:03 | CP.PCM.PN ---
Subjective - Date & Time of Evaluation Date of Evaluation: 04/28/18 Time of Evaluation: 11:00 - Subjective Subjective: Patient seen and examined. Complained of not sleeping for 2 days Objective - Vital Signs/Intake and Output Vital Signs (last 24 hours): Temp Pulse Resp BP Pulse Ox 96.8 F L 81 18 174/76 H 99 04/28/18 10:00 04/28/18 10:00 04/28/18 10:00 04/28/18 10:00 04/28/18 10:00 - Medications Medications: Current Medications Aspirin (Aspirin Chewable) 81 mg PO DAILY [facility] Last Admin: 04/28/18 08:55 Dose: 81 mg Atorvastatin Calcium (Lipitor) 40 mg PO HS [facility] Last Admin: 04/27/18 21:36 Dose: 40 mg Bisacodyl (Dulcolax) 5 mg PO DAILY PRN PRN Reason: Constipation Enalapril Maleate (Vasotec) 20 mg PO DAILY [facility] Last Admin: 04/28/18 08:55 Dose: 20 mg Enoxaparin Sodium (Lovenox) 40 mg SC DAILY [facility] PRN Reason: Protocol Last Admin: 04/28/18 12:26 Dose: Not Given Neomycin/Polymyxin/Bacitracin (Neosporin Antibiotic Oint) 1 applic TOP BID [facility] Last Admin: 04/28/18 17:11 Dose: 1 applic Zolpidem Tartrate (Ambien) 5 mg PO [facility] - Labs Labs: 04/26/18 05:20 04/26/18 05:20 - Constitutional Appears: No Acute Distress - Head Exam Head Exam: ATRAUMATIC - Eye Exam Eye Exam: absent: Scleral icterus - ENT Exam ENT Exam: Mucous Membranes Moist - Neck Exam Neck Exam: absent: Meningismus - Respiratory Exam Respiratory Exam: absent: Rales, Rhonchi, Wheezes, Respiratory Distress - Cardiovascular Exam Cardiovascular Exam: REGULAR RHYTHM, +S1, +S2 - GI/Abdominal Exam GI & Abdominal Exam: Soft. absent: Tenderness - Rectal Exam Rectal Exam: Deferred - Neurological Exam Neurological Exam: Alert, Oriented x3 - Psychiatric Exam Psychiatric exam: Normal Affect - Skin Skin Exam: Dry, Intact Assessment and Plan - Assessment and Plan (Free Text) Assessment: 57 yo male with no significant PMH was initially admitted at [facility] because of Right MCA CVA on 04/17/18. He was transferred to Acute Rehab on 04/22/18 for continuation of PT. 1. Status post cerebrovascular accident Continue PT /OT / speech therapy On ASA, Statin monitor and control BP 2. Hypertension BP elevated increase Enalapril to 20mg PO BID 3. HLD (hyperlipidemia) on statin 4.DVT prophylaxis Lovenox 40mg SC daily
[2018-04-29 06:28] LABS: HEMOGLOBIN 14.3 g/dL (12.0-18.0); MEAN CELL VOLUME 82.8 fl (80.0-94.0); MEAN CORPUSCULAR HGB CONC 33.8 g/dL (33.0-37.0); RBC 5.11 Mil/uL (4.40-5.90); RED CELL DISTRIBUTION WIDTH 12.7 % (11.5-14.5); WHITE BLOOD COUNT 9.7 K/uL (4.8-10.8)
[2018-04-29 06:29] LABS: BLOOD UREA NITROGEN 15 mg/dl (9-20); CALCIUM 12.7 mg/dL (8.4-10.2); GFR NON-AFRICAN AMERICAN > 60
[2018-04-29] MEDS: Enoxaparin 40 mg Syringe SC SCH (09:00)
[2018-04-29] MEDS: Bacitracin/Neomycin/Polymyxin 30GM OINT TOP SCH ×2 (09:01→17:38)
--- NOTE | 2018-04-29 20:09 | PN ---
DATE: 04/29/2018 SUBJECTIVE: A 57-year-old male admitted to acute inpatient rehab program with diagnosis of acute CVA with arm and leg weakness. No acute complaints noted at present. PHYSICAL EXAMINATION: VITAL SIGNS: Stable. NECK: Supple. CHEST: Symmetrical. HEART: Sounds S1 and S2. ABDOMEN: Benign. EXTREMITIES: No clubbing, cyanosis, or edema. IMPRESSION: The patient has acute cerebrovascular accident with arm and leg weakness. PLAN: Physical therapy, occupational therapy, recreational therapy, and speech therapy for range of motion, strengthening transverse, ambulation gait training. To also do team conference on the patient to discuss discharge planning. Also continue to follow up with the medical device assembler and the neurologist. Carlos Forbes MD
[2018-04-30] MEDS: Enoxaparin 40 mg Syringe SC SCH (08:46)
[2018-04-30] MEDS: Bacitracin/Neomycin/Polymyxin 30GM OINT TOP SCH ×2 (08:46→17:41)
--- NOTE | 2018-04-30 11:49 | PSY.TMCNF ---
Nursing - Vital Signs Vital Signs (Last 8 hours): Vital Signs 04/30/18 08:23 Temperature 98.1 F Pulse Rate 75 Respiratory 19 Rate Blood Pressure 151/75 H O2 Sat by Pulse 96 Oximetry Pain: 0 - Precautions: Precautions: Fall Prevention, Aspiration, Pressure Ulcer - Medications/Other Issues Comment: on Lovenox - Consults Comment: seen by Neuro- 04/23. Cardio- 04/24 - Toileting Toileting: Moderate Assistance - Bladder Management Bladder Pattern: Normal Voiding Method: Toilet, Urinal Bladder Management: Moderate Assistance Frequency of Accidents: with occasional spills at times - Bowel Management Bowel Pattern: Normal Bowel Management: Moderate Assistance Frequency of Accidents: none - Transfers Transfers: Maximal Assistance - ADL's ADL's: Maximal Assistance - Pain Management Comments: denies pain - Patient/Family Teaching Comments: safety measures, fall precaution, medications usage & possible side effects - Goals/Time Frame Comments: no falls within Rehab. stays - Provider Provider: NolviaRN,CRRN Physical Therapy - Bed Mobility Bed Mobility: Moderate Assistance - Transfers Wheelchair to Mat: Moderate Assistance Sit to Stand: Moderate Assistance - Ambulation Level of Assistance: Moderate Assistance, Maximum Assistance Distance (ft.): 15 Assistive Devices: Tristan Walker Orthoses: L DF wrap Comment: 15 feet with tristan-walker (RUE) with LLE DF wrap with mod/max A. -WC follow for safety. -assistance for upright stance, weight shifting and LLE progression and stabilization. -x 3 trials with tristan-walker. -VCs for straight forward gaze to assist with normalization of postural control; encouraged patient to utilize "cane, left right" pattern to ensure safety and prevent patient from stepping with RLE as PT mobilizes LLE; used VCs to relax R elbow on hemiwalker to reduce pushing and improve motor control/coordiation/motion at the R knee joint - Stair Negotiation Stairs: Level of Assistance: Not Tested - Standing Balance Static Stand: Maximal Assistance Dynamic Stand: Unable to assess/perform - Pain Pain (assessed during therapy session): 0 - Insight/Carryover Insight/Carryover: Fair - Patient/Family Education Comment: safety, therapy schedule, therapy goals, stroke recovery, use of call romero - Assessment/Plan Assessment: Mr Hager is a 57 yo male presenting to [facility] s/p acute CVA. Patient presents with impaired static/dynamic seated/standing balance, impaired activity tolerance , impaired activity tolerance, L sided neglect, L UE/LE hemipareis , poor safety awareness/lack of awareness/insight into defecits thus impacting pt's ability to complete pt's self care routine, transfers, mobility safely and effecitvely. pt currenlty at max A level for ub ADLs, LB ADLs with dependence and transfers (w/c, eob, commode with max A. recommend continue skilled OT services 5-6/x week as per plan of care. - Goals Timeframe: 2 weeks Goals: supervision toiletinng. supervision lb adls. supervision transfers. improve LUE strength 2 - Provider Therapist: Viviana Welsh PT, DPT License Number: [id number] Occupational Therapy - Arousal/Attention/Orientation Patient Orientation: Person, Place, Time, Appropriate to Age, Appropriate to Situation - ADL/IADL Self Feeding: Set-up Help Grooming: Moderate Assistance, Maximum Assistance Bathing-Upper Extremity: Maximum Assistance Bathing-Lower Extremity: Dependent Dressing-Upper Extremity: Maximum Assistance Dressing-Lower Extremity: Maximum Assistance, Dependent - Sitting Balance Static Sitting: Moderate Assistance Dynamic Sitting: Moderate Assistance, Maximal Assistance - Transfers Wheelchair to Bed Transfers: Maximum Assistance Toilet Transfers: Maximum Assistance - Wheelchair Management Level of Assistance: Minimal Assistance Distance (ft.): 50 - Upper Extremity Status Right Upper Extremity Comment: PROM WFLs. AR0M :0/5 digit flexion/extension. 0/5 wrist flexion/extension. 1/5 trace movement pronation/supination. 1/5 trace movement elbow flexion/extension Left Upper Extremity Comment: AROM WNLs - Pain Pain (assessed during therapy session): 0 - Insight/Carryover Insight/Carryover: Fair - Patient/Family Education Comment: safety, therapy schedule, therapy goals, stroke recovery, use of call rmoero - Assessment/Plan Assessment: Mr Hager is a 57 yo male presenting to [facility] s/ acute CVA. Patient presents with impaired static/dynamic seated/standing balance, impaired activity tolerance , impaired activity tolerance, L sided neglect, L UE/LE hemipareis , poor safety awareness/lack of awareness/insight into defecits thus impacting pt's ability to complete pt's self care routine, transfers, mobility safely and effecitvely. pt currenlty at max A level for ub ADLs, LB ADLs with dependence and transfers (w/c, eob, commode with max A. recommend continue skilled OT services 5-6/x week as per plan of care. - Goals Timeframe: 2 weeks Goals: supervision toiletinng. supervision lb adls. supervision transfers. improve LUE strength /5 - Provider Therapist: XENA Mcneal License Number: [id number] Speech Therapy - Consult Information Patient on Program: Yes Medical Diagnosis: CVA Treatment Diagnosis: -moderate cognitive deficits. -moderate dysarthria. -mild-moderate oral dysphagia - Assessment Receptive Language Impairment: Mild Problem Solving Impairment: Moderate Memory Impairment: Moderate Speech/Articulation Impairment: Moderate Dysphagia/Swallowing Impairment: Moderate - Plan Assessment: Mr Hager is a 57 yo male presenting to [facility] acute CVA. Patient presents with impaired static/dynamic seated/standing balance, impaired activity tolerance , impaired activity tolerance, L sided neglect, L UE/LE hemipareis , poor safety awareness/lack of awareness/insight into defecits thus impacting pt's ability to complete pt's self care routine, transfers, mobility safely and effecitvely. pt currenlty at max A level for ub ADLs, LB ADLs with dependence and transfers (w/c, eob, commode with max A. recommend continue skilled OT services 5-6/x week as per plan of care. - Provider Therapist: Anju Petersen License Number: [id number] Recreational Therapy - Participation Participation: Participates in Individual and/or Group Sessions - Attendance Attendance: 3-5 times per week - Activities Leisure Activities: Cards and Games - Socialization Level of Socialization: Initiates/interacts freely with care givers and peer - Diversional Time Diversional Time: listening to music, television - Assessment Assessment/Plan: Mr Hager is a 57 yo male presenting to [facility] acute CVA. Patient presents with impaired static/dynamic seated/standing balance, impaired activity tolerance , impaired activity tolerance, L sided neglect, L UE/LE hemipareis , poor safety awareness/lack of awareness/insight into defecits thus impacting pt's ability to complete pt's self care routine, transfers, mobility safely and effecitvely. pt currenlty at max A level for ub ADLs, LB ADLs with dependence and transfers (w/c, eob, commode with max A. recommend continue skilled OT services 5-6/x week as per plan of care. - Provider Therapist: Anne Multani, DOG BOARDER #[id number] Nutrition - Current Diet Current Diet/ Supplement/ Feedings: Heart healthy pureed thin liquids - Appetite Percent Meal Consumed: 50-74% - Comments Comments: safety measures, fall precaution, medications usage & possible side effects - Assessment/Goals/Time Frame Assessment/Goals/Time Frame: on Lovenox - Provider Provider: Yue Villegas RD Case Management - Psychosocial Assessment Support Systems: [employer] Doug ([facility])- [phone] Psychological Interventions/Needs: Patient is alert with impairments in safety awareness and insight Discharge Concerns: Patient currently requiring max A for functional mobility, patient with over 30 steps at home to negotiate Patient/Family Meeting: CM met with patient and rehab team Intervention/Goal/Outcome:: 1. Goal: Min A? 2. Plan: LENI as patient with significant impairments impacting safe discharge home, CM to continue following closely for most appropriate discharge plan and needs, LENI list to be provided to family. 3. patient to be reteamed next week for most appropriate discharge date and plan. 4. continued emotional support. 5. continued stay auth, LAD: 03/29 - updates to be faxed at that time - Discharge Plan Discharge Plan: Subacute care - Provider Provider: JERMAINE Bianchi, [employer] License Number: [id number]
--- NOTE | 2018-04-30 13:23 | CP.PCM.PN ---
Subjective - Date & Time of Evaluation Date of Evaluation: 04/30/18 Time of Evaluation: 11:00 - Subjective Subjective: NO ACUTE COMPLAINTS Objective - Vital Signs/Intake and Output Vital Signs (last 24 hours): Temp Pulse Resp BP Pulse Ox 98.1 F 75 19 151/75 H 96 04/30/18 08:23 04/30/18 08:23 04/30/18 08:23 04/30/18 08:23 04/30/18 08:23 - Medications Medications: Current Medications Aspirin (Aspirin Chewable) 81 mg PO DAILY [facility] Last Admin: 04/30/18 08:46 Dose: 81 mg Atorvastatin Calcium (Lipitor) 40 mg PO [facility] Last Admin: 04/29/18 21:34 Dose: 40 mg Bisacodyl (Dulcolax) 5 mg PO DAILY PRN PRN Reason: Constipation Enalapril Maleate (Vasotec) 20 mg PO BID [facility] Last Admin: 04/30/18 08:45 Dose: 20 mg Enoxaparin Sodium (Lovenox) 40 mg SC DAILY [facility]; Protocol Last Admin: 04/30/18 08:46 Dose: 40 mg Neomycin/Polymyxin/Bacitracin (Neosporin Antibiotic Oint) 1 applic TOP BID [facility] Last Admin: 04/30/18 08:46 Dose: 1 applic Zolpidem Tartrate (Ambien) 5 mg PO [facility] Last Admin: 04/29/18 21:34 Dose: 5 mg - Labs Labs: 04/29/18 05:20 04/29/18 05:20 - Head Exam Head Exam: ATRAUMATIC, NORMAL INSPECTION, NORMOCEPHALIC - Eye Exam Eye Exam: EOMI, Normal appearance, PERRL Pupil Exam: NORMAL ACCOMODATION - ENT Exam ENT Exam: Mucous Membranes Moist, Normal Exam - Neck Exam Neck Exam: Normal Inspection - Respiratory Exam Respiratory Exam: NORMAL BREATHING PATTERN - Cardiovascular Exam Cardiovascular Exam: REGULAR RHYTHM - GI/Abdominal Exam GI & Abdominal Exam: Soft, Normal Bowel Sounds - Rectal Exam Rectal Exam: NORMAL INSPECTION - Exam External exam: NORMAL EXTERNAL EXAM - Extremities Exam Extremities Exam: Full ROM, Normal Capillary Refill, Normal Inspection - Back Exam Back Exam: NORMAL INSPECTION - Neurological Exam Neurological Exam: Alert, Awake Neuro motor strength exam: Left Upper Extremity: 2/1, Left Lower Extremity: 2/1 - Psychiatric Exam Psychiatric exam: Normal Affect, Normal Mood Assessment and Plan (1) DVT prophylaxis Status: Acute (2) HLD (hyperlipidemia) Status: Chronic (3) Status post cerebrovascular accident Assessment & Plan: STATUS POST TEAM dc FOR MAY 16 THEN SUBACUTE Status: Acute
--- NOTE | 2018-04-30 13:25 | CP.PCM.PN ---
Subjective - Date & Time of Evaluation Date of Evaluation: 04/30/18 Time of Evaluation: 16:00 - Subjective Subjective: Patient seen . All chart reviewed . BP slightly elevated As per staff participating with PT and improving No acute issues overnight Diet advanced to regular Objective - Vital Signs/Intake and Output Vital Signs (last 24 hours): Temp Pulse Resp BP Pulse Ox 98.1 F 75 19 151/75 H 96 04/30/18 08:23 04/30/18 08:23 04/30/18 08:23 04/30/18 08:23 04/30/18 08:23 - Medications Medications: Current Medications Aspirin (Aspirin Chewable) 81 mg PO DAILY [facility] Last Admin: 04/30/18 08:46 Dose: 81 mg Atorvastatin Calcium (Lipitor) 40 mg PO [facility] Last Admin: 04/29/18 21:34 Dose: 40 mg Bisacodyl (Dulcolax) 5 mg PO DAILY PRN PRN Reason: Constipation Enalapril Maleate (Vasotec) 20 mg PO BID [facility] Last Admin: 04/30/18 08:45 Dose: 20 mg Enoxaparin Sodium (Lovenox) 40 mg SC DAILY [facility]; Protocol Last Admin: 04/30/18 08:46 Dose: 40 mg Neomycin/Polymyxin/Bacitracin (Neosporin Antibiotic Oint) 1 applic TOP BID [facility] Last Admin: 04/30/18 08:46 Dose: 1 applic Zolpidem Tartrate (Ambien) 5 mg PO HS [facility] Last Admin: 04/29/18 21:34 Dose: 5 mg - Labs Labs: 04/29/18 05:20 04/29/18 05:20 - Constitutional Appears: Non-toxic, No Acute Distress - Head Exam Head Exam: ATRAUMATIC, NORMOCEPHALIC - Eye Exam Eye Exam: EOMI, PERRL Pupil Exam: NORMAL ACCOMODATION - ENT Exam ENT Exam: Mucous Membranes Moist, Normal Exam - Neck Exam Neck Exam: Normal Inspection - Respiratory Exam Respiratory Exam: Clear to Ausculation Bilateral, NORMAL BREATHING PATTERN. absent: Respiratory Distress - Cardiovascular Exam Cardiovascular Exam: REGULAR RHYTHM, +S1, +S2. absent: JVD - GI/Abdominal Exam GI & Abdominal Exam: Soft, Normal Bowel Sounds. absent: Distended, Guarding, Rebound - Rectal Exam Rectal Exam: Deferred - Extremities Exam Extremities Exam: Normal Capillary Refill, Normal Inspection. 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 He was transferred to Acute Rehab on 04/22/18 for continuation of PT.Participating with PT and improving . Still with left side flacid 1. Status post cerebrovascular accident Continue PT /OT / speech therapy On ASA, Statin monitor and control BP 2. Hypertension BP elevated on Enalapril to 20mg PO BID Will start Norvasc 5 mg po QD today 3. HLD (hyperlipidemia) on statin 4.DVT prophylaxis Lovenox 40mg SC daily
[2018-05-01] MEDS: Enoxaparin 40 mg Syringe SC SCH (08:22)
[2018-05-01] MEDS: Bacitracin/Neomycin/Polymyxin 30GM OINT TOP SCH ×2 (08:23→17:14)
[2018-05-02 06:39] LABS: HEMOGLOBIN 13.7 g/dL (12.0-18.0); MEAN CORPUSCULAR HEMOGLOBIN 27.9 pg (27.0-31.0); MEAN CORPUSCULAR HGB CONC 33.6 g/dL (33.0-37.0); RBC 4.92 Mil/uL (4.40-5.90); RED CELL DISTRIBUTION WIDTH 12.6 % (11.5-14.5)
[2018-05-02 07:08] LABS: BLOOD UREA NITROGEN 16 mg/dl (9-20); CALCIUM 12.3 mg/dL (8.4-10.2); GFR NON-AFRICAN AMERICAN > 60
[2018-05-02] MEDS: Enoxaparin 40 mg Syringe SC SCH (08:37)
[2018-05-02] MEDS: Bacitracin/Neomycin/Polymyxin 30GM OINT TOP SCH ×2 (08:37→17:31)
--- NOTE | 2018-05-02 13:53 | CP.PCM.PN ---
Subjective - Date & Time of Evaluation Date of Evaluation: 05/02/18 Time of Evaluation: 09:00 - Subjective Subjective: patinet with arm and leg weakness but no new complaints Objective - Vital Signs/Intake and Output Vital Signs (last 24 hours): Temp Pulse Resp BP Pulse Ox 98 F 82 20 130/80 98 05/02/18 08:35 05/02/18 08:37 05/02/18 08:35 05/02/18 08:37 05/02/18 08:35 - Medications Medications: Current Medications Amlodipine Besylate (Norvasc) 5 mg PO DAILY [facility] Last Admin: 05/02/18 08:37 Dose: 5 mg Aspirin (Aspirin Chewable) 81 mg PO DAILY [facility] Last Admin: 05/02/18 08:38 Dose: 81 mg Atorvastatin Calcium (Lipitor) 40 mg PO [facility] Last Admin: 05/01/18 21:38 Dose: 40 mg Bisacodyl (Dulcolax) 5 mg PO DAILY PRN PRN Reason: Constipation Enalapril Maleate (Vasotec) 20 mg PO BID [facility] Last Admin: 05/02/18 08:38 Dose: 20 mg Enoxaparin Sodium (Lovenox) 40 mg SC DAILY [facility]; Protocol Last Admin: 05/02/18 08:37 Dose: 40 mg Neomycin/Polymyxin/Bacitracin (Neosporin Antibiotic Oint) 1 applic TOP BID [facility] Last Admin: 05/02/18 08:37 Dose: 1 applic Zolpidem Tartrate (Ambien) 5 mg PO HS [facility] Last Admin: 05/01/18 21:42 Dose: 5 mg - Labs Labs: 05/02/18 06:15 05/02/18 06:15 - Head Exam Head Exam: ATRAUMATIC, NORMAL INSPECTION, NORMOCEPHALIC - Eye Exam Eye Exam: EOMI, Normal appearance, PERRL Pupil Exam: NORMAL ACCOMODATION - ENT Exam ENT Exam: Mucous Membranes Moist, Normal Exam - Neck Exam Neck Exam: Normal Inspection - Respiratory Exam Respiratory Exam: NORMAL BREATHING PATTERN - Cardiovascular Exam Cardiovascular Exam: REGULAR RHYTHM - GI/Abdominal Exam GI & Abdominal Exam: Soft, Normal Bowel Sounds - Rectal Exam Rectal Exam: NORMAL INSPECTION - Exam External exam: NORMAL EXTERNAL EXAM - Extremities Exam Extremities Exam: Full ROM, Normal Capillary Refill, Normal Inspection - Back Exam Back Exam: NORMAL INSPECTION - Neurological Exam Neurological Exam: Alert, Oriented x3 Neuro motor strength exam: Left Upper Extremity: 2/, Left Lower Extremity: 2/1 - Psychiatric Exam Psychiatric exam: Normal Affect, Normal Mood - Skin Skin Exam: Dry, Intact Assessment and Plan (1) DVT prophylaxis Status: Acute (2) HLD (hyperlipidemia) Status: Chronic (3) Status post cerebrovascular accident Assessment & Plan: 0plan fo rphysical, occupational, rec and speech therapy electric stim Status: Acute
--- NOTE | 2018-05-02 19:20 | CP.PCM.PN ---
Subjective - Date & Time of Evaluation Date of Evaluation: 05/02/18 Time of Evaluation: 19:19 - Subjective Subjective: patient complaints of lack of sleep despite getting ambien requests something else for sleep no constipation no cp Objective - Vital Signs/Intake and Output Vital Signs (last 24 hours): Temp Pulse Resp BP Pulse Ox 98 F 82 20 130/80 98 05/02/18 08:35 05/02/18 08:37 05/02/18 08:35 05/02/18 08:37 05/02/18 08:35 - Medications Medications: Current Medications Amlodipine Besylate (Norvasc) 5 mg PO DAILY [facility] Last Admin: 05/02/18 08:37 Dose: 5 mg Aspirin (Aspirin Chewable) 81 mg PO DAILY [facility] Last Admin: 05/02/18 08:38 Dose: 81 mg Atorvastatin Calcium (Lipitor) 40 mg PO HS [facility] Last Admin: 05/01/18 21:38 Dose: 40 mg Bisacodyl (Dulcolax) 5 mg PO DAILY PRN PRN Reason: Constipation Enalapril Maleate (Vasotec) 20 mg PO BID [facility] Last Admin: 05/02/18 17:31 Dose: 20 mg Enoxaparin Sodium (Lovenox) 40 mg SC DAILY [facility]; Protocol Last Admin: 05/02/18 08:37 Dose: 40 mg Neomycin/Polymyxin/Bacitracin (Neosporin Antibiotic Oint) 1 applic TOP BID [facility] Last Admin: 05/02/18 17:31 Dose: 1 applic Temazepam (Restoril) 15 mg PO HS PRN PRN Reason: Sleep - Labs Labs: 05/02/18 06:15 05/02/18 06:15 - Additional Findings Additional findings: - Constitutional Appears: Non-toxic, No Acute Distress - Head Exam Head Exam: ATRAUMATIC, NORMOCEPHALIC - Eye Exam Eye Exam: EOMI, PERRL Pupil Exam: NORMAL ACCOMODATION - ENT Exam ENT Exam: Mucous Membranes Moist, Normal Exam - Neck Exam Neck Exam: Normal Inspection - Respiratory Exam Respiratory Exam: Clear to Ausculation Bilateral, NORMAL BREATHING PATTERN. absent: Respiratory Distress - Cardiovascular Exam Cardiovascular Exam: REGULAR RHYTHM, +S1, +S2. absent: JVD - GI/Abdominal Exam GI & Abdominal Exam: Soft, Normal Bowel Sounds. absent: Distended, Guarding, Rebound - Rectal Exam Rectal Exam: Deferred - Extremities Exam Extremities Exam: Normal Capillary Refill, Normal Inspection. absent: Pedal Edema - Back Exam Back Exam: NORMAL INSPECTION - Neurological Exam Neurological Exam: Alert, Awake, CN II-XII Intact Neuro motor strength exam: Left Upper Extremity: 0, Right Upper Extremity: 5, Left Lower Extremity: 0, Right Lower Extremity: 5 - Psychiatric Exam Psychiatric exam: Normal Affect - Skin Skin Exam: Dry, Warm Assessment and Plan - Assessment and Plan (Free Text) Assessment: 57 yo male with no significant PMH was initially admitted at [facility] because of Right MCA CVA on 04/17/18. He was transferred to Acute Rehab on 04/22/18 for continuation of PT.Participating with PT and improving . Still with left side flacid 1. Status post cerebrovascular accident Continue PT /OT / speech therapy On ASA, Statin monitor and control BP 2. Hypertension BP elevated on Enalapril to 20mg PO BID Will start Norvasc 5 mg po QD today 3. HLD (hyperlipidemia) on statin 4.DVT prophylaxis Lovenox 40mg SC daily 5. Sleep: stopped ambien trial restoril
[2018-05-03] MEDS: Bacitracin/Neomycin/Polymyxin 30GM OINT TOP SCH ×2 (09:07→16:49)
[2018-05-03] MEDS: Enoxaparin 40 mg Syringe SC SCH (09:07)
[2018-05-04] MEDS: Enoxaparin 40 mg Syringe SC SCH (09:27)
[2018-05-04] MEDS: Bacitracin/Neomycin/Polymyxin 30GM OINT TOP SCH ×2 (09:27→16:22)
[2018-05-05 06:10] LABS: HEMOGLOBIN 14.1 g/dL (12.0-18.0); MEAN CELL VOLUME 83.7 fl (80.0-94.0); MEAN CORPUSCULAR HEMOGLOBIN 27.4 pg (27.0-31.0); MEAN CORPUSCULAR HGB CONC 32.7 g/dL (33.0-37.0); RBC 5.16 Mil/uL (4.40-5.90); RED CELL DISTRIBUTION WIDTH 12.7 % (11.5-14.5); WHITE BLOOD COUNT 9.3 K/uL (4.8-10.8)
[2018-05-05 06:29] LABS: BLOOD UREA NITROGEN 15 mg/dl (9-20); CALCIUM 12.2 mg/dL (8.4-10.2); GFR NON-AFRICAN AMERICAN > 60
[2018-05-05] MEDS: Enoxaparin 40 mg Syringe SC SCH (07:59)
[2018-05-05] MEDS: Bacitracin/Neomycin/Polymyxin 30GM OINT TOP SCH ×2 (08:00→16:07)
--- NOTE | 2018-05-05 14:56 | CP.PCM.PN ---
Subjective - Date & Time of Evaluation Date of Evaluation: 05/05/18 Time of Evaluation: 11:00 - Subjective Subjective: Patient seen and examined. Saw sleeping comfortably. As per RN patient did not offer any complaint and has been doing fine. Objective - Vital Signs/Intake and Output Vital Signs (last 24 hours): Temp Pulse Resp BP Pulse Ox 97.9 F 83 18 174/81 H 98 05/05/18 07:57 05/05/18 08:00 05/05/18 07:57 05/05/18 08:00 05/05/18 07:57 Intake and Output: 05/05/18 05/05/18 06:59 18:59 Intake Total 240 Output Total 300 Balance -60 - Medications Medications: Current Medications Amlodipine Besylate (Norvasc) 5 mg PO DAILY [facility] Last Admin: 05/05/18 08:00 Dose: 5 mg Aspirin (Aspirin Chewable) 81 mg PO DAILY [facility] Last Admin: 05/05/18 07:59 Dose: 81 mg Atorvastatin Calcium (Lipitor) 40 mg PO HS [facility] Last Admin: 05/04/18 21:51 Dose: 40 mg Bisacodyl (Dulcolax) 5 mg PO DAILY PRN PRN Reason: Constipation Last Admin: 05/03/18 09:07 Dose: 5 mg Enalapril Maleate (Vasotec) 20 mg PO BID [facility] Last Admin: 05/05/18 08:00 Dose: 20 mg Enoxaparin Sodium (Lovenox) 40 mg SC DAILY [facility]; Protocol Last Admin: 05/05/18 07:59 Dose: 40 mg Neomycin/Polymyxin/Bacitracin (Neosporin Antibiotic Oint) 1 applic TOP BID [facility] Last Admin: 05/05/18 08:00 Dose: 1 applic Temazepam (Restoril) 15 mg PO HS PRN PRN Reason: Sleep Last Admin: 05/04/18 21:50 Dose: 15 mg - Labs Labs: 05/05/18 05:30 05/05/18 05:30 - Constitutional Appears: No Acute Distress - Head Exam Head Exam: ATRAUMATIC - Eye Exam Eye Exam: absent: Scleral icterus - ENT Exam ENT Exam: Mucous Membranes Moist - Neck Exam Neck Exam: absent: Meningismus - Respiratory Exam Respiratory Exam: absent: Rales, Rhonchi, Wheezes, Respiratory Distress - Cardiovascular Exam Cardiovascular Exam: REGULAR RHYTHM, +S1, +S2 - GI/Abdominal Exam GI & Abdominal Exam: Soft. absent: Tenderness - Rectal Exam Rectal Exam: Deferred - Neurological Exam Neurological Exam: Alert, Oriented x3 - Psychiatric Exam Psychiatric exam: Normal Affect - Skin Skin Exam: Dry, Intact Assessment and Plan - Assessment and Plan (Free Text) Assessment: 57 yo male with no significant PMH was initially admitted at [facility] because of Right MCA CVA on 04/17/18. He was transferred to Acute Rehab on 04/22/18 for continuation of PT. Participating with PT and improving . Still with left side flacid 1. Status post cerebrovascular accident Continue PT /OT / speech therapy On ASA, Statin monitor and control BP 2. Hypertension BP slightly elevated continue Enalapril 20mg PO BID and Norvasc 10mg PO daily 3. HLD (hyperlipidemia) on statin 4.DVT prophylaxis Lovenox 40mg SC daily
[2018-05-06] MEDS: Enoxaparin 40 mg Syringe SC SCH (09:14)
[2018-05-06] MEDS: Bacitracin/Neomycin/Polymyxin 30GM OINT TOP SCH ×2 (09:15→17:33)
--- NOTE | 2018-05-06 15:24 | CP.PCM.PN ---
Subjective - Date & Time of Evaluation Date of Evaluation: 05/06/18 Time of Evaluation: 15:00 - Subjective Subjective: no acute complaints at present Objective - Vital Signs/Intake and Output Vital Signs (last 24 hours): Temp Pulse Resp BP Pulse Ox 97.3 F L 83 20 150/76 99 05/06/18 07:30 05/06/18 09:00 05/06/18 07:30 05/06/18 09:00 05/06/18 07:30 - Medications Medications: Current Medications Amlodipine Besylate (Norvasc) 10 mg PO DAILY [facility] Last Admin: 05/06/18 09:00 Dose: 10 mg Aspirin (Aspirin Chewable) 81 mg PO DAILY [facility] Last Admin: 05/06/18 09:14 Dose: 81 mg Atorvastatin Calcium (Lipitor) 40 mg PO HS [facility] Last Admin: 05/05/18 21:45 Dose: 40 mg Bisacodyl (Dulcolax) 5 mg PO DAILY PRN PRN Reason: Constipation Last Admin: 05/03/18 09:07 Dose: 5 mg Enalapril Maleate (Vasotec) 20 mg PO BID [facility] Last Admin: 05/06/18 09:34 Dose: 20 mg Enoxaparin Sodium (Lovenox) 40 mg SC DAILY [facility]; Protocol Last Admin: 05/06/18 09:14 Dose: 40 mg Neomycin/Polymyxin/Bacitracin (Neosporin Antibiotic Oint) 1 applic TOP BID [facility] Last Admin: 05/06/18 09:15 Dose: 1 applic Temazepam (Restoril) 15 mg PO HS PRN PRN Reason: Sleep Last Admin: 05/05/18 21:44 Dose: 15 mg - Labs Labs: 05/05/18 05:30 05/05/18 05:30 - Head Exam Head Exam: ATRAUMATIC, NORMAL INSPECTION, NORMOCEPHALIC - Eye Exam Eye Exam: EOMI, Normal appearance, PERRL Pupil Exam: NORMAL ACCOMODATION - ENT Exam ENT Exam: Mucous Membranes Moist, Normal Exam - Neck Exam Neck Exam: Full ROM, Normal Inspection - Respiratory Exam Respiratory Exam: NORMAL BREATHING PATTERN - Cardiovascular Exam Cardiovascular Exam: REGULAR RHYTHM - GI/Abdominal Exam GI & Abdominal Exam: Soft, Normal Bowel Sounds - Rectal Exam Rectal Exam: NORMAL INSPECTION - Exam External exam: NORMAL EXTERNAL EXAM - Extremities Exam Extremities Exam: Full ROM, Normal Capillary Refill, Normal Inspection - Back Exam Back Exam: NORMAL INSPECTION - Neurological Exam Neurological Exam: Alert, Awake Neuro motor strength exam: Left Upper Extremity: 2/, Left Lower Extremity: 2/1 - Psychiatric Exam Psychiatric exam: Normal Affect, Normal Mood - Skin Skin Exam: Dry, Intact Assessment and Plan (1) DVT prophylaxis Status: Acute (2) HLD (hyperlipidemia) Status: Chronic (3) Status post cerebrovascular accident Assessment & Plan: plan for physical, occupational , rec therapy program Status: Acute
--- NOTE | 2018-05-06 15:26 | CP.PCM.PN ---
Subjective - Date & Time of Evaluation Date of Evaluation: 05/03/18 Time of Evaluation: 20:00 - Subjective Subjective: no acute neck or back pain Objective - Vital Signs/Intake and Output Vital Signs (last 24 hours): Temp Pulse Resp BP Pulse Ox 97.3 F L 83 20 150/76 99 05/06/18 07:30 05/06/18 09:00 05/06/18 07:30 05/06/18 09:00 05/06/18 07:30 - Medications Medications: Current Medications Amlodipine Besylate (Norvasc) 10 mg PO DAILY [facility] Last Admin: 05/06/18 09:00 Dose: 10 mg Aspirin (Aspirin Chewable) 81 mg PO DAILY [facility] Last Admin: 05/06/18 09:14 Dose: 81 mg Atorvastatin Calcium (Lipitor) 40 mg PO HS [facility] Last Admin: 05/05/18 21:45 Dose: 40 mg Bisacodyl (Dulcolax) 5 mg PO DAILY PRN PRN Reason: Constipation Last Admin: 05/03/18 09:07 Dose: 5 mg Enalapril Maleate (Vasotec) 20 mg PO BID [facility] Last Admin: 05/06/18 09:34 Dose: 20 mg Enoxaparin Sodium (Lovenox) 40 mg SC DAILY [facility]; Protocol Last Admin: 05/06/18 09:14 Dose: 40 mg Neomycin/Polymyxin/Bacitracin (Neosporin Antibiotic Oint) 1 applic TOP BID [facility] Last Admin: 05/06/18 09:15 Dose: 1 applic Temazepam (Restoril) 15 mg PO HS PRN PRN Reason: Sleep Last Admin: 05/05/18 21:44 Dose: 15 mg - Labs Labs: 05/05/18 05:30 05/05/18 05:30 - Head Exam Head Exam: ATRAUMATIC, NORMAL INSPECTION, NORMOCEPHALIC - Eye Exam Eye Exam: EOMI, Normal appearance, PERRL Pupil Exam: NORMAL ACCOMODATION - ENT Exam ENT Exam: Mucous Membranes Moist, Normal Exam - Neck Exam Neck Exam: Normal Inspection - Respiratory Exam Respiratory Exam: Clear to Ausculation Bilateral, NORMAL BREATHING PATTERN - Cardiovascular Exam Cardiovascular Exam: REGULAR RHYTHM - GI/Abdominal Exam GI & Abdominal Exam: Soft, Normal Bowel Sounds - Rectal Exam Rectal Exam: NORMAL INSPECTION - Exam External exam: NORMAL EXTERNAL EXAM - Extremities Exam Extremities Exam: Full ROM, Normal Capillary Refill - Back Exam Back Exam: NORMAL INSPECTION - Neurological Exam Neurological Exam: Alert, Awake Neuro motor strength exam: Left Upper Extremity: 2/, Left Lower Extremity: 2/1 - Psychiatric Exam Psychiatric exam: Normal Affect, Normal Mood - Skin Skin Exam: Dry, Intact Assessment and Plan (1) DVT prophylaxis Status: Acute (2) HLD (hyperlipidemia) Status: Chronic (3) Status post cerebrovascular accident Assessment & Plan: plan for physical, occupational, rec and speech therapy Status: Acute
[2018-05-07] MEDS: Enoxaparin 40 mg Syringe SC SCH (08:22)
[2018-05-07] MEDS: Bacitracin/Neomycin/Polymyxin 30GM OINT TOP SCH ×2 (08:23→17:32)
--- NOTE | 2018-05-07 11:37 | PSY.TMCNF ---
Nursing - Vital Signs Vital Signs (Last 8 hours): Vital Signs 05/07/18 05/07/18 05/07/18 08:23 09:00 09:30 Temperature 97 F L 97 F L Pulse Rate 81 81 Respiratory 20 20 Rate Blood Pressure 140/74 140/74 140/74 O2 Sat by Pulse 99 Oximetry Pain: 0 - Precautions: Precautions: Fall Prevention, Aspiration, Pressure Ulcer - Medications/Other Issues Comment: Pt at moderate nutritional risk. goals: 1. Pt to consume 75-100% of meals(met for past 3 days,continue). 2. Deter wt loss(met, continue). Follow- up due on 05/12/2018 - Consults Comment: , , Dr. Shi-Gibilisco - Toileting Toileting: Moderate Assistance - Bladder Management Bladder Pattern: Normal Voiding Method: Urinal Bladder Management: Moderate Assistance Frequency of Accidents: 0 - Bowel Management Bowel Pattern: Normal Bowel Management: Moderate Assistance Frequency of Accidents: none - Transfers Transfers: Dependent - ADL's ADL's: Maximal Assistance - Pain Management Comments: denies pain - Patient/Family Teaching Comments: Diet advanced 05/06/18 per [facility] recommendations, continues with safety and aspiration precautions. Pt is tolerating current consistentcy. - Goals/Time Frame Comments: Per multidisciplinary care plan and goals - Provider Provider: Dolly TAMN RN CRRN Physical Therapy - Bed Mobility Bed Mobility: Verbal Cues, Moderate Assistance - Transfers Wheelchair to Mat: Verbal Cues, Maximum Assistance Sit to Stand: Verbal Cues, Moderate Assistance, Maximum Assistance - Ambulation Level of Assistance: Maximum Assistance Distance (ft.): 15 Assistive Devices: Wide base quad cane Orthoses: L DF wrap Comment: -15 feet with WBQC on the R with max A w/ close WC follow for safety. -L DF wrap, max A for LLE progression/stability during swing/stance. -max A for trunk control and weight shifting. -VCs for improved postural control. - patient with some pushing with poor midline control with RUE and RLE extension noted; reduced ability to weight shift rightwards. -mirror feedback utilized as needed. -patient requesting to return to wall bar; educated on progression off of the wall bar towards devices to improve postural control and progression towards more independence - Stair Negotiation Stairs: Level of Assistance: Not Tested - Standing Balance Static Stand: Maximal Assistance Dynamic Stand: Maximal Assistance - Pain Pain (assessed during therapy session): 0 Comment: denies - Insight/Carryover Insight/Carryover: Fair - Patient/Family Education Comment: safety, therapy schedule, therapy goals, mobility, use of call romero, stroke recovery - Assessment/Plan Assessment: Mr Hager is a 57 yo male presenting to [facility] s/p acute CVA. Patient presents with impaired static/dynamic seated/standing balance, impaired activity tolerance , impaired activity tolerance, L sided neglect, L UE/LE hemipareis , poor safety awareness/lack of awareness/insight into defecits thus impacting pt's ability to complete pt's self care routine, transfers, mobility safely and effecitvely. pt currenlty at max A level for ub ADLs, LB ADLs with ,mod-max A x 1 for transfers (w/c, eob, commode). recommend continue skilled OT services 5- 6/x week as per plan of care. - Goals Timeframe: 2 weeks Goals: supervision toiletinng. supervision lb adls. supervision transfers. improve LUE strength 2/5 - Provider Therapist: Viviana Welsh PT, DPT License Number: [id number] Occupational Therapy - Arousal/Attention/Orientation Patient Orientation: Person, Place, Time, Appropriate to Age, Appropriate to Situation - ADL/IADL Self Feeding: Set-up Help Grooming: Minimal Assistance Bathing-Upper Extremity: Maximum Assistance Bathing-Lower Extremity: Dependent Dressing-Upper Extremity: Maximum Assistance Dressing-Lower Extremity: Maximum Assistance - Sitting Balance Static Sitting: Minimal Assistance Dynamic Sitting: Minimal Assistance, Moderate Assistance - Transfers Wheelchair to Bed Transfers: Maximum Assistance Toilet Transfers: Maximum Assistance - Wheelchair Management Level of Assistance: Minimal Assistance Distance (ft.): 50 - Upper Extremity Status Right Upper Extremity Comment: AROM WFLs. strength 4/5 t/o Left Upper Extremity Comment: PROM WFLs. hypertonicity; synergy pattern. AR0M :0/5 digit flexion/extension. 0/5 wrist flexion/extension. 1/5 trace movement pronation/supination. 1/5 trace movement elbow flexion/extension - Pain Pain (assessed during therapy session): 0 Comment: denies - Insight/Carryover Insight/Carryover: Fair - Patient/Family Education Comment: safety, therapy schedule, therapy goals, mobility, use of call romero, stroke recovery - Assessment/Plan Assessment: Mr Hager is a 57 yo male presenting to [facility] acute CVA. Patient presents with impaired static/dynamic seated/standing balance, impaired activity tolerance , impaired activity tolerance, L sided neglect, L UE/LE hemipareis , poor safety awareness/lack of awareness/insight into defecits thus impacting pt 's ability to complete pt's self care routine, transfers, mobility safely and effecitvely. pt currenlty at max A level for ub ADLs, LB ADLs with ,mod-max A x 1 for transfers (w/c, eob, commode). recommend continue skilled OT services 5- 6/x week as per plan of care. - Goals Timeframe: 2 weeks Goals: supervision toiletinng. supervision lb adls. supervision transfers. improve LUE strength 09/09 - Provider Therapist: FIDEL Mcneal/Chelo License Number: [id number] Speech Therapy - Consult Information Patient on Program: Yes Medical Diagnosis: CVA Treatment Diagnosis: -mild-moderate cognitive deficits. -mild-moderate dysarthria. -mild oral dysphagia - Assessment Problem Solving Impairment: Mild Memory Impairment: Mild Speech/Articulation Impairment: Moderate Comment: mild-moderate Dysphagia/Swallowing Impairment: Mild - Plan Assessment: Mr Hager is a 57 yo male presenting to [facility] acute CVA. Patient presents with impaired static/dynamic seated/standing balance, impaired activity tolerance , impaired activity tolerance, L sided neglect, L UE/LE hemipareis , poor safety awareness/lack of awareness/insight into defecits thus impacting pt's ability to complete pt's self care routine, transfers, mobility safely and effecitvely. pt currenlty at max A level for ub ADLs, LB ADLs with ,mod-max A x 1 for transfers (w/c, eob, commode). recommend continue skilled OT services 5- 6/x week as per plan of care. - Provider Therapist: Anju Petersen License Number: [id number] Recreational Therapy - Participation Participation: Participates in Individual and/or Group Sessions - Attendance Attendance: 3-5 times per week - Activities Leisure Activities: Cards and Games - Socialization Level of Socialization: Initiates/interacts freely with care givers and peer - Diversional Time Diversional Time: listening to music, television - Assessment Assessment/Plan: Mr Hager is a 57 yo male presenting to [facility] s/p acute CVA. Patient presents with impaired static/dynamic seated/standing balance, impaired activity tolerance , impaired activity tolerance, L sided neglect, L UE/LE hemipareis , poor safety awareness/lack of awareness/insight into defecits thus impacting pt's ability to complete pt's self care routine, transfers, mobility safely and effecitvely. pt currenlty at max A level for ub ADLs, LB ADLs with ,mod-max A x 1 for transfers (w/c, eob, commode). recommend continue skilled OT services 5-6/x week as per plan of care. - Provider Therapist: Anne Multani, [employer] #[id number] Nutrition - Current Diet Current Diet/ Supplement/ Feedings: 1) Advanced bite size, thin liquids, 2 gram Na. 2) 8 ounces Ensure plus 2 per day (700 kcal, 26g pro) - Appetite Percent Meal Consumed: 75-100% - Comments Comments: Diet advanced 05/06/18 per [employer] [facility] recommendations, continues with safety and aspiration precautions. Pt is tolerating current consistentcy. - Assessment/Goals/Time Frame Assessment/Goals/Time Frame: Pt at moderate nutritional risk. goals: 1. Pt to consume 75-100% of meals(met for past 3 days,continue). 2. Deter wt loss(met, continue). Follow-up due on 05/12/2018 - Provider Provider: Maxwell Chou RD, RN, [facility] Case Management - Psychosocial Assessment Support Systems: Lc Camacho (son)- [phone] Psychological Interventions/Needs: Patient is alert with impairments in safety awareness and insight Discharge Concerns: Patient currently requiring max A for functional mobility, patient with over 30 steps at home to negotiate Patient/Family Meeting: CM met with patient and rehab team Intervention/Goal/Outcome:: 1. Goal: Min A. 2. Plan: LENI as patient with significant impairments impacting safe discharge home, LENI list to be provided to family to initiate referrals, patient also voiced concerns on stair negotiation and readiness to return home. 3. Tentative discharge date: 05/16/2018. 4. continued emotional support. 5. continued stay auth, LAD: 05/06- updates to be faxed at that time - Discharge Plan Discharge Plan: Subacute care - Provider Provider: JERMAINE Bianchi LSW License Number: [id number]
--- NOTE | 2018-05-07 11:39 | PSY.TMCNF ---
Nursing - Vital Signs Vital Signs (Last 8 hours): Vital Signs 05/07/18 05/07/18 05/07/18 08:23 09:00 09:30 Temperature 97 F L 97 F L Pulse Rate 81 81 Respiratory 20 20 Rate Blood Pressure 140/74 140/74 140/74 O2 Sat by Pulse 99 Oximetry Pain: 0 - Precautions: Precautions: Fall Prevention, Aspiration, Pressure Ulcer - Medications/Other Issues Comment: Pt at moderate nutritional risk. goals: 1. Pt to consume 75-100% of meals(met for past 3 days,continue). 2. Deter wt loss(met, continue). Follow- up due on 05/12/2018 - Consults Comment: , , Dr. Shi-Gibilisco - Toileting Toileting: Moderate Assistance - Bladder Management Bladder Pattern: Normal Voiding Method: Urinal Bladder Management: Moderate Assistance Frequency of Accidents: 0 - Bowel Management Bowel Pattern: Normal Bowel Management: Moderate Assistance Frequency of Accidents: none - Transfers Transfers: Dependent - ADL's ADL's: Maximal Assistance - Pain Management Comments: denies pain - Patient/Family Teaching Comments: Diet advanced 05/06/18 per PROMPT CARE RN recommendations, continues with safety and aspiration precautions. Pt is tolerating current consistentcy. - Goals/Time Frame Comments: Per multidisciplinary care plan and goals - Provider Provider: Dolly TAMN RN CRRN Physical Therapy - Bed Mobility Bed Mobility: Verbal Cues, Moderate Assistance - Transfers Wheelchair to Mat: Verbal Cues, Maximum Assistance Sit to Stand: Verbal Cues, Moderate Assistance, Maximum Assistance - Ambulation Level of Assistance: Maximum Assistance Distance (ft.): 15 Assistive Devices: Wide base quad cane Orthoses: L DF wrap Comment: -15 feet with WBQC on the R with max A w/ close WC follow for safety. -L DF wrap, max A for LLE progression/stability during swing/stance. -max A for trunk control and weight shifting. -VCs for improved postural control. - patient with some pushing with poor midline control with RUE and RLE extension noted; reduced ability to weight shift rightwards. -mirror feedback utilized as needed. -patient requesting to return to wall bar; educated on progression off of the wall bar towards devices to improve postural control and progression towards more independence - Stair Negotiation Stairs: Level of Assistance: Not Tested - Standing Balance Static Stand: Maximal Assistance Dynamic Stand: Maximal Assistance - Pain Pain (assessed during therapy session): 0 Comment: denies - Insight/Carryover Insight/Carryover: Fair - Patient/Family Education Comment: safety, therapy schedule, therapy goals, mobility, use of call romero, stroke recovery - Assessment/Plan Assessment: Mr Hager is a 57 yo male presenting to [facility] s/p acute CVA. Patient presents with impaired static/dynamic seated/standing balance, impaired activity tolerance , impaired activity tolerance, L sided neglect, L UE/LE hemipareis , poor safety awareness/lack of awareness/insight into defecits thus impacting pt's ability to complete pt's self care routine, transfers, mobility safely and effecitvely. pt currenlty at max A level for ub ADLs, LB ADLs with ,mod-max A x 1 for transfers (w/c, eob, commode). recommend continue skilled OT services 5- 6/x week as per plan of care. - Goals Timeframe: 2 weeks Goals: supervision toiletinng. supervision lb adls. supervision transfers. improve LUE strength 2/5 - Provider Therapist: Viviana Welsh PT, DPT License Number: [id number] Occupational Therapy - Arousal/Attention/Orientation Patient Orientation: Person, Place, Time, Appropriate to Age, Appropriate to Situation - ADL/IADL Self Feeding: Set-up Help Grooming: Minimal Assistance Bathing-Upper Extremity: Maximum Assistance Bathing-Lower Extremity: Dependent Dressing-Upper Extremity: Maximum Assistance Dressing-Lower Extremity: Maximum Assistance - Sitting Balance Static Sitting: Minimal Assistance Dynamic Sitting: Minimal Assistance, Moderate Assistance - Transfers Wheelchair to Bed Transfers: Maximum Assistance Toilet Transfers: Maximum Assistance - Wheelchair Management Level of Assistance: Minimal Assistance Distance (ft.): 50 - Upper Extremity Status Right Upper Extremity Comment: AROM WFLs. strength 4/5 t/o Left Upper Extremity Comment: PROM WFLs. hypertonicity; synergy pattern. AR0M :0/5 digit flexion/extension. 0/5 wrist flexion/extension. 1/5 trace movement pronation/supination. 1/5 trace movement elbow flexion/extension - Pain Pain (assessed during therapy session): 0 Comment: denies - Insight/Carryover Insight/Carryover: Fair - Patient/Family Education Comment: safety, therapy schedule, therapy goals, mobility, use of call romero, stroke recovery - Assessment/Plan Assessment: Mr Hager is a 57 yo male presenting to [facility] acute CVA. Patient presents with impaired static/dynamic seated/standing balance, impaired activity tolerance , impaired activity tolerance, L sided neglect, L UE/LE hemipareis , poor safety awareness/lack of awareness/insight into defecits thus impacting pt 's ability to complete pt's self care routine, transfers, mobility safely and effecitvely. pt currenlty at max A level for ub ADLs, LB ADLs with ,mod-max A x 1 for transfers (w/c, eob, commode). recommend continue skilled OT services 5- 6/x week as per plan of care. - Goals Timeframe: 2 weeks Goals: supervision toiletinng. supervision lb adls. supervision transfers. improve LUE strength 09/09 - Provider Therapist: FIDEL Mcneal/Chelo License Number: [id number] Speech Therapy - Consult Information Patient on Program: Yes Medical Diagnosis: CVA Treatment Diagnosis: -mild-moderate cognitive deficits. -mild-moderate dysarthria. -mild oral dysphagia - Assessment Problem Solving Impairment: Mild Memory Impairment: Mild Speech/Articulation Impairment: Moderate Comment: mild-moderate Dysphagia/Swallowing Impairment: Mild - Plan Assessment: Mr Hager is a 57 yo male presenting to [facility] acute CVA. Patient presents with impaired static/dynamic seated/standing balance, impaired activity tolerance , impaired activity tolerance, L sided neglect, L UE/LE hemipareis , poor safety awareness/lack of awareness/insight into defecits thus impacting pt's ability to complete pt's self care routine, transfers, mobility safely and effecitvely. pt currenlty at max A level for ub ADLs, LB ADLs with ,mod-max A x 1 for transfers (w/c, eob, commode). recommend continue skilled OT services 5- 6/x week as per plan of care. - Provider Therapist: Anju Petersen License Number: [id number] Recreational Therapy - Participation Participation: Participates in Individual and/or Group Sessions - Attendance Attendance: 3-5 times per week - Activities Leisure Activities: Cards and Games - Socialization Level of Socialization: Initiates/interacts freely with care givers and peer - Diversional Time Diversional Time: listening to music, television - Assessment Assessment/Plan: Mr Hager is a 57 yo male presenting to [facility] s/p acute CVA. Patient presents with impaired static/dynamic seated/standing balance, impaired activity tolerance , impaired activity tolerance, L sided neglect, L UE/LE hemipareis , poor safety awareness/lack of awareness/insight into defecits thus impacting pt's ability to complete pt's self care routine, transfers, mobility safely and effecitvely. pt currenlty at max A level for ub ADLs, LB ADLs with ,mod-max A x 1 for transfers (w/c, eob, commode). recommend continue skilled OT services 5-6/x week as per plan of care. - Provider Therapist: Anne Multani, [employer] #[id number] Nutrition - Current Diet Current Diet/ Supplement/ Feedings: 1) Advanced bite size, thin liquids, 2 gram Na. 2) 8 ounces Ensure plus 2 per day (700 kcal, 26g pro) - Appetite Percent Meal Consumed: 75-100% - Comments Comments: Diet advanced 05/06/18 per PROMPT CARE RN recommendations, continues with safety and aspiration precautions. Pt is tolerating current consistentcy. - Assessment/Goals/Time Frame Assessment/Goals/Time Frame: Pt at moderate nutritional risk. goals: 1. Pt to consume 75-100% of meals(met for past 3 days,continue). 2. Deter wt loss(met, continue). Follow-up due on 05/12/2018 - Provider Provider: Maxwell Chou RD, RN, [facility] Case Management - Psychosocial Assessment Support Systems: Lc Camacho (son)- [phone] Psychological Interventions/Needs: Patient is alert with impairments in safety awareness and insight Discharge Concerns: Patient currently requiring max A for functional mobility, patient with over 30 steps at home to negotiate Patient/Family Meeting: CM met with patient and rehab team Intervention/Goal/Outcome:: 1. Goal: Min A. 2. Plan: LENI as patient with significant impairments impacting safe discharge home, LENI list to be provided to family to initiate referrals, patient also voiced concerns on stair negotiation and readiness to return home. 3. Tentative discharge date: 05/16/2018. 4. continued emotional support. 5. continued stay auth, LAD: 05/06- updates to be faxed at that time - Discharge Plan Discharge Plan: Subacute care - Provider Provider: JERMAINE Bianchi LSW License Number: [id number] Rehabilitation Plan - Treatment Plan Treatment Plan: Physical Therapy, Occupational Therapy, Speech, Dietary, Patient/Family Education - Recommendation Recommendation: Physical Therapy, Occupational Therapy, Speech, Dietary, Patient/Family Education - Discharge Plan Discharge to: Subacute (Dc 12)
--- NOTE | 2018-05-07 13:38 | CP.PCM.PN ---
Subjective - Date & Time of Evaluation Date of Evaluation: 05/07/18 Time of Evaluation: 09:00 - Subjective Subjective: no acute complaints at present Objective - Vital Signs/Intake and Output Vital Signs (last 24 hours): Temp Pulse Resp BP Pulse Ox 97 F L 81 20 140/74 99 05/07/18 09:30 05/07/18 09:30 05/07/18 09:30 05/07/18 09:30 05/07/18 09:30 - Medications Medications: Current Medications Amlodipine Besylate (Norvasc) 10 mg PO DAILY COUNT INCLUDES THE [facility] Last Admin: 05/07/18 08:23 Dose: 10 mg Aspirin (Aspirin Chewable) 81 mg PO DAILY COUNT INCLUDES THE [facility] Last Admin: 05/07/18 08:24 Dose: 81 mg Atorvastatin Calcium (Lipitor) 40 mg PO HS COUNT INCLUDES THE [facility] Last Admin: 05/06/18 22:12 Dose: 40 mg Bisacodyl (Dulcolax) 5 mg PO DAILY PRN PRN Reason: Constipation Last Admin: 05/03/18 09:07 Dose: 5 mg Enalapril Maleate (Vasotec) 20 mg PO BID COUNT INCLUDES THE [facility] Last Admin: 05/07/18 08:23 Dose: 20 mg Enoxaparin Sodium (Lovenox) 40 mg SC DAILY COUNT INCLUDES THE [facility]; Protocol Last Admin: 05/07/18 08:22 Dose: 40 mg Neomycin/Polymyxin/Bacitracin (Neosporin Antibiotic Oint) 1 applic TOP BID COUNT INCLUDES THE [facility] Last Admin: 05/07/18 08:23 Dose: 1 applic Temazepam (Restoril) 15 mg PO HS PRN PRN Reason: Sleep Last Admin: 05/06/18 22:11 Dose: 15 mg - Labs Labs: 05/05/18 05:30 05/05/18 05:30 - Head Exam Head Exam: ATRAUMATIC, NORMAL INSPECTION, NORMOCEPHALIC - Eye Exam Eye Exam: EOMI, Normal appearance, PERRL Pupil Exam: NORMAL ACCOMODATION - ENT Exam ENT Exam: Mucous Membranes Moist, Normal Exam - Neck Exam Neck Exam: Full ROM - Respiratory Exam Respiratory Exam: Clear to Ausculation Bilateral, NORMAL BREATHING PATTERN - Cardiovascular Exam Cardiovascular Exam: REGULAR RHYTHM - GI/Abdominal Exam GI & Abdominal Exam: Soft, Normal Bowel Sounds - Rectal Exam Rectal Exam: NORMAL INSPECTION - Exam External exam: NORMAL EXTERNAL EXAM - Extremities Exam Extremities Exam: Full ROM, Normal Capillary Refill, Normal Inspection - Back Exam Back Exam: NORMAL INSPECTION - Neurological Exam Neurological Exam: Alert, Awake Neuro motor strength exam: Left Upper Extremity: 2/1, Left Lower Extremity: 2/1 - Psychiatric Exam Psychiatric exam: Normal Affect, Normal Mood - Skin Skin Exam: Dry, Intact Assessment and Plan (1) DVT prophylaxis Status: Acute (2) HLD (hyperlipidemia) Status: Chronic (3) Status post cerebrovascular accident Assessment & Plan: pt, ot rec and speech therapy Dc for may 16 status post team conference Status: Acute
--- NOTE | 2018-05-07 17:15 | CP.PCM.PN ---
Subjective - Date & Time of Evaluation Date of Evaluation: 05/07/18 Time of Evaluation: 17:00 - Subjective Subjective: Patient seen and examined. Continue to complain of not able to sleep but saw the other day sleeping during the day. Nurse also claimed that he has been sleeping at least 6 hrs a day. Objective - Vital Signs/Intake and Output Vital Signs (last 24 hours): Temp Pulse Resp BP Pulse Ox 97 F L 81 20 140/74 99 05/07/18 09:30 05/07/18 09:30 05/07/18 09:30 05/07/18 09:30 05/07/18 09:30 - Medications Medications: Current Medications Amlodipine Besylate (Norvasc) 10 mg PO DAILY [facility] Last Admin: 05/07/18 08:23 Dose: 10 mg Aspirin (Aspirin Chewable) 81 mg PO DAILY [facility] Last Admin: 05/07/18 08:24 Dose: 81 mg Atorvastatin Calcium (Lipitor) 40 mg PO HS [facility] Last Admin: 05/06/18 22:12 Dose: 40 mg Bisacodyl (Dulcolax) 5 mg PO DAILY PRN PRN Reason: Constipation Last Admin: 05/03/18 09:07 Dose: 5 mg Enalapril Maleate (Vasotec) 20 mg PO BID [facility] Last Admin: 05/07/18 08:23 Dose: 20 mg Enoxaparin Sodium (Lovenox) 40 mg SC DAILY [facility]; Protocol Last Admin: 05/07/18 08:22 Dose: 40 mg Neomycin/Polymyxin/Bacitracin (Neosporin Antibiotic Oint) 1 applic TOP BID [facility] Last Admin: 05/07/18 08:23 Dose: 1 applic Temazepam (Restoril) 15 mg PO HS PRN PRN Reason: Sleep Last Admin: 05/06/18 22:11 Dose: 15 mg - Labs Labs: 05/05/18 05:30 05/05/18 05:30 - Constitutional Appears: No Acute Distress - Head Exam Head Exam: ATRAUMATIC - Eye Exam Eye Exam: absent: Scleral icterus - ENT Exam ENT Exam: Mucous Membranes Moist - Neck Exam Neck Exam: absent: Meningismus - Respiratory Exam Respiratory Exam: absent: Rales, Rhonchi, Wheezes, Respiratory Distress - Cardiovascular Exam Cardiovascular Exam: REGULAR RHYTHM, +S1, +S2 - GI/Abdominal Exam GI & Abdominal Exam: Soft. absent: Tenderness - Rectal Exam Rectal Exam: Deferred - Neurological Exam Neurological Exam: Alert, Oriented x3 - Psychiatric Exam Psychiatric exam: Normal Affect - Skin Skin Exam: Dry, Intact Assessment and Plan - Assessment and Plan (Free Text) Assessment: 57 yo male with no significant PMH was initially admitted at [facility] because of Right MCA CVA on 04/17/18. He was transferred to Acute Rehab on 04/22/18 for continuation of PT. Participating with PT and improving . Still with left side flacid 1. Status post cerebrovascular accident Continue PT /OT / speech therapy On ASA, Statin monitor and control BP 2. Hypertension BP controlled after increased of Norvasc to 10mg continue Enalapril and Norvasc 3. HLD (hyperlipidemia) continue Lipitor 4.DVT prophylaxis Lovenox 40mg SC daily
--- NOTE | 2018-05-08 08:01 | CP.PCM.CON ---
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 He was initially admitted to [facility], did not meet criteria for TPA. Had full workup at [facility] [place], and is now here for acute rehab. Patient denies feeling depressed/anxious/AH/VH/SI/HI. A + O x 3. MHx/SHx: None prior to this CVA PPHx: No past psychiatric history Allergies: NKDA Family Hx: Several brothers with CAD/CABG, CVA, HLD Social Hx: Lives with family, tobacco use 20 years ago, no EtOH Surrogate Dec Mkr: , info on chart Impression: 57 yo male s/p CVA, does not meet criteria for Major Depressive Disorder or Generalized Anxiety Disorder. No acute psychiatric medications or psychiatric hospitalization indicated at this time. Past Patient History - Past Medical History & Family History Past Medical History?: No - Past Social History Smoking Status: Never Smoked - CARDIAC Hx Cardiac Disorders: No - PULMONARY Hx Respiratory Disorders: No - NEUROLOGICAL HX Cerebrovascular Accident: Yes - HEENT Hx HEENT Problems: No - RENAL Hx Chronic Kidney Disease: No - ENDOCRINE/METABOLIC Hx Endocrine Disorders: No - HEMATOLOGICAL/ONCOLOGICAL Hx Blood Disorders: No - INTEGUMENTARY Hx Dermatological Problems: No - MUSCULOSKELETAL/RHEUMATOLOGICAL Hx Falls: Yes - GASTROINTESTINAL Hx Gastrointestinal Disorders: No - GENITOURINARY/GYNECOLOGICAL Hx Genitourinary Disorders: No - PSYCHIATRIC Hx Substance Use: No - SURGICAL HISTORY Hx Surgeries: No - ANESTHESIA Hx Anesthesia: No Meds Allergies/Adverse Reactions: Allergies Allergy/AdvReac Type Severity Reaction Status Date / Time No Known Allergies Allergy Verified 04/22/18 21:20 - Medications Medications: Current Medications Amlodipine Besylate (Norvasc) 10 mg PO DAILY [facility] Last Admin: 05/07/18 08:23 Dose: 10 mg Aspirin (Aspirin Chewable) 81 mg PO DAILY [facility] Last Admin: 05/07/18 08:24 Dose: 81 mg Atorvastatin Calcium (Lipitor) 40 mg PO HS [facility] Last Admin: 05/07/18 22:33 Dose: 40 mg Bisacodyl (Dulcolax) 5 mg PO DAILY PRN PRN Reason: Constipation Last Admin: 05/03/18 09:07 Dose: 5 mg Enalapril Maleate (Vasotec) 20 mg PO BID [facility] Last Admin: 05/07/18 17:31 Dose: 20 mg Enoxaparin Sodium (Lovenox) 40 mg SC DAILY [facility]; Protocol Last Admin: 05/07/18 08:22 Dose: 40 mg Neomycin/Polymyxin/Bacitracin (Neosporin Antibiotic Oint) 1 applic TOP BID [facility] Last Admin: 05/07/18 17:32 Dose: 1 applic Temazepam (Restoril) 15 mg PO HS PRN PRN Reason: Sleep Last Admin: 05/07/18 22:34 Dose: 15 mg Results - Vital Signs Recent Vital Signs: Last Vital Signs Temp 97.3 F L 05/07/18 22:00 Pulse 74 05/07/18 22:00 Resp 20 05/07/18 22:00 BP 127/67 05/07/18 22:00 Pulse Ox 97 05/07/18 22:00 - Labs Result Diagrams: 05/05/18 05:30 05/05/18 05:30
[2018-05-08] MEDS: Enoxaparin 40 mg Syringe SC SCH (08:19)
[2018-05-08] MEDS: Bacitracin/Neomycin/Polymyxin 30GM OINT TOP SCH ×2 (08:20→17:08)
--- NOTE | 2018-05-09 08:04 | CP.PCM.CON ---
History of Present Illness - History of Present Illness History of Present Illness: Pt is a 57 year old male from [facility] originally admitted to [facility] and referred to the fiction writer for evaluation. Med history postive for CVA. See medical record for complete medical history and medication list. Social History: pt lives with his and three children in [place]. Positive relationships reported. 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 Psych history denied, pt denied history of alc. sub abuse. Pt spoke of initiatil depression with the CVA and improved mood with gains made and improved ambulation. Support provided to address distress, stroke education and cognitiv e strategies reviewed. Pt alert, oriented to year and month not day/date, affect constricted, mood improving no si no hi ideation, no psychosis. Dx: Adjustment Dx plan: Continued Sup therapy Past Patient History - Past Medical History & Family History Past Medical History?: No - Past Social History Smoking Status: Never Smoked - CARDIAC Hx Cardiac Disorders: No - PULMONARY Hx Respiratory Disorders: No - NEUROLOGICAL HX Cerebrovascular Accident: Yes - HEENT Hx HEENT Problems: No - RENAL Hx Chronic Kidney Disease: No - ENDOCRINE/METABOLIC Hx Endocrine Disorders: No - HEMATOLOGICAL/ONCOLOGICAL Hx Blood Disorders: No - INTEGUMENTARY Hx Dermatological Problems: No - MUSCULOSKELETAL/RHEUMATOLOGICAL Hx Falls: Yes - GASTROINTESTINAL Hx Gastrointestinal Disorders: No - GENITOURINARY/GYNECOLOGICAL Hx Genitourinary Disorders: No - PSYCHIATRIC Hx Substance Use: No - SURGICAL HISTORY Hx Surgeries: No - ANESTHESIA Hx Anesthesia: No Meds Allergies/Adverse Reactions: Allergies Allergy/AdvReac Type Severity Reaction Status Date / Time No Known Allergies Allergy Verified 04/22/18 21:20 - Medications Medications: Current Medications Amlodipine Besylate (Norvasc) 10 mg PO DAILY [facility] Last Admin: 05/08/18 08:22 Dose: 10 mg Aspirin (Aspirin Chewable) 81 mg PO DAILY [facility] Last Admin: 05/08/18 08:20 Dose: 81 mg Atorvastatin Calcium (Lipitor) 40 mg PO HS [facility] Last Admin: 05/08/18 22:19 Dose: 40 mg Bisacodyl (Dulcolax) 5 mg PO DAILY PRN PRN Reason: Constipation Last Admin: 05/03/18 09:07 Dose: 5 mg Enalapril Maleate (Vasotec) 20 mg PO BID [facility] Last Admin: 05/08/18 17:08 Dose: 20 mg Enoxaparin Sodium (Lovenox) 40 mg SC DAILY [facility]; Protocol Last Admin: 05/08/18 08:19 Dose: 40 mg Neomycin/Polymyxin/Bacitracin (Neosporin Antibiotic Oint) 1 applic TOP BID [facility] Last Admin: 05/08/18 17:08 Dose: 1 applic Temazepam (Restoril) 15 mg PO HS PRN PRN Reason: Sleep Last Admin: 05/08/18 22:19 Dose: 15 mg Results - Vital Signs Recent Vital Signs: Last Vital Signs Temp 97.9 F 05/08/18 21:00 Pulse 77 05/08/18 21:00 Resp 20 05/08/18 21:00 BP 142/73 05/08/18 21:00 Pulse Ox 96 05/08/18 21:00 - Labs Result Diagrams: 05/05/18 05:30 05/05/18 05:30
[2018-05-09] MEDS: Enoxaparin 40 mg Syringe SC SCH (08:10)
[2018-05-09] MEDS: Bacitracin/Neomycin/Polymyxin 30GM OINT TOP SCH ×2 (08:10→17:29)
--- NOTE | 2018-05-09 13:14 | CP.PCM.PN ---
Subjective - Date & Time of Evaluation Date of Evaluation: 05/09/18 Time of Evaluation: 10:00 - Subjective Subjective: no acute complaints of arm or leg pain Objective - Vital Signs/Intake and Output Vital Signs (last 24 hours): Temp Pulse Resp BP Pulse Ox 96.7 F L 89 18 145/85 99 05/09/18 08:20 05/09/18 08:20 05/09/18 08:20 05/09/18 08:20 05/09/18 08:20 - Medications Medications: Current Medications Amlodipine Besylate (Norvasc) 10 mg PO DAILY [facility] Last Admin: 05/09/18 08:10 Dose: 10 mg Aspirin (Aspirin Chewable) 81 mg PO DAILY [facility] Last Admin: 05/09/18 08:09 Dose: 81 mg Atorvastatin Calcium (Lipitor) 40 mg PO HS [facility] Last Admin: 05/08/18 22:19 Dose: 40 mg Bisacodyl (Dulcolax) 5 mg PO DAILY PRN PRN Reason: Constipation Last Admin: 05/03/18 09:07 Dose: 5 mg Enalapril Maleate (Vasotec) 20 mg PO BID [facility] Last Admin: 05/09/18 08:12 Dose: 20 mg Enoxaparin Sodium (Lovenox) 40 mg SC DAILY [facility]; Protocol Last Admin: 05/09/18 08:10 Dose: 40 mg Neomycin/Polymyxin/Bacitracin (Neosporin Antibiotic Oint) 1 applic TOP BID [facility] Last Admin: 05/09/18 08:10 Dose: 1 applic Temazepam (Restoril) 15 mg PO HS PRN PRN Reason: Sleep Last Admin: 05/08/18 22:19 Dose: 15 mg - Labs Labs: 05/05/18 05:30 05/05/18 05:30 - Head Exam Head Exam: ATRAUMATIC, NORMAL INSPECTION, NORMOCEPHALIC - Eye Exam Eye Exam: EOMI, Normal appearance, PERRL Pupil Exam: NORMAL ACCOMODATION - ENT Exam ENT Exam: Mucous Membranes Moist, Normal Exam - Neck Exam Neck Exam: Full ROM, Normal Inspection - Respiratory Exam Respiratory Exam: NORMAL BREATHING PATTERN - Cardiovascular Exam Cardiovascular Exam: REGULAR RHYTHM - GI/Abdominal Exam GI & Abdominal Exam: Soft, Normal Bowel Sounds - Rectal Exam Rectal Exam: NORMAL INSPECTION - Exam External exam: NORMAL EXTERNAL EXAM - Extremities Exam Extremities Exam: Full ROM, Normal Capillary Refill - Back Exam Back Exam: NORMAL INSPECTION - Neurological Exam Neurological Exam: Alert, Awake Neuro motor strength exam: Left Upper Extremity: 2/, Left Lower Extremity: 2/1 - Psychiatric Exam Psychiatric exam: Normal Affect, Normal Mood - Skin Skin Exam: Dry, Intact Assessment and Plan (1) DVT prophylaxis Status: Acute (2) HLD (hyperlipidemia) Status: Chronic (3) Status post cerebrovascular accident Assessment & Plan: follow up with [facility], electri stim, possible brace for leg , pt, ot rec and st Status: Acute
--- NOTE | 2018-05-09 19:06 | CP.PCM.PN ---
Subjective - Date & Time of Evaluation Date of Evaluation: 05/09/18 Time of Evaluation: 18:00 - Subjective Subjective: Patient seen and examined bedside . Feeling better .Participating with PT and weakness of left side improving Complains of being unable to sleep well Complains of some hand left swelling Objective - Vital Signs/Intake and Output Vital Signs (last 24 hours): Temp Pulse Resp BP Pulse Ox 96.7 F L 89 18 145/85 99 05/09/18 08:20 05/09/18 08:20 05/09/18 08:20 05/09/18 08:20 05/09/18 08:20 - Medications Medications: Current Medications Amlodipine Besylate (Norvasc) 10 mg PO DAILY [facility] Last Admin: 05/09/18 08:10 Dose: 10 mg Aspirin (Aspirin Chewable) 81 mg PO DAILY [facility] Last Admin: 05/09/18 08:09 Dose: 81 mg Atorvastatin Calcium (Lipitor) 40 mg PO HS [facility] Last Admin: 05/08/18 22:19 Dose: 40 mg Bisacodyl (Dulcolax) 5 mg PO DAILY PRN PRN Reason: Constipation Last Admin: 05/03/18 09:07 Dose: 5 mg Enalapril Maleate (Vasotec) 20 mg PO BID [facility] Last Admin: 05/09/18 17:29 Dose: 20 mg Enoxaparin Sodium (Lovenox) 40 mg SC DAILY [facility]; Protocol Last Admin: 05/09/18 08:10 Dose: 40 mg Neomycin/Polymyxin/Bacitracin (Neosporin Antibiotic Oint) 1 applic TOP BID [facility] Last Admin: 05/09/18 17:29 Dose: 1 applic Temazepam (Restoril) 15 mg PO HS PRN PRN Reason: Sleep Last Admin: 05/08/18 22:19 Dose: 15 mg - Labs Labs: 05/05/18 05:30 05/05/18 05:30 - Constitutional Appears: Non-toxic, No Acute Distress - Head Exam Head Exam: ATRAUMATIC, NORMOCEPHALIC - Eye Exam Eye Exam: EOMI, PERRL Pupil Exam: NORMAL ACCOMODATION - ENT Exam ENT Exam: Mucous Membranes Moist, Normal Exam - Respiratory Exam Respiratory Exam: Clear to Ausculation Bilateral, NORMAL BREATHING PATTERN. absent: Rales, Rhonchi, Wheezes - Cardiovascular Exam Cardiovascular Exam: REGULAR RHYTHM, RRR, +S1, +S2. absent: JVD - GI/Abdominal Exam GI & Abdominal Exam: Soft, Normal Bowel Sounds. absent: Distended, Guarding, Tenderness, Rebound - Rectal Exam Rectal Exam: Deferred - Extremities Exam Extremities Exam: Full ROM, Normal Capillary Refill, Normal Inspection. absent: Pedal Edema - Back Exam Back Exam: NORMAL INSPECTION - Neurological Exam Neurological Exam: Alert, Awake, CN II-XII Intact, Oriented x3 Neuro motor strength exam: Left Upper Extremity: 3, Right Upper Extremity: 5, Left Lower Extremity: 3, Right Lower Extremity: 5 - Psychiatric Exam Psychiatric exam: Flat Affect - Skin Skin Exam: Dry, Intact, Normal Color, Warm Assessment and Plan - Assessment and Plan (Free Text) Assessment: 57 yo male with no significant PMH was initially admitted at [facility] because of Right MCA CVA on 04/17/18. He was transferred to Acute Rehab on 04/22/18 for continuation of PT. Participating with PT and improving . Still with left side weaknees but better . 1. Status post cerebrovascular accident left side weakness improving Continue PT /OT / speech therapy On ASA, Statin monitor and control BP 2. Hypertension BP controlled on Norvasc and enalapril 3. HLD (hyperlipidemia) continue Lipitor 4.DVT prophylaxis Lovenox 40mg SC daily
[2018-05-10] MEDS: Bacitracin/Neomycin/Polymyxin 30GM OINT TOP SCH ×2 (08:14→17:30)
[2018-05-10] MEDS: Enoxaparin 40 mg Syringe SC SCH (08:14)
[2018-05-11 07:26] LABS: HEMOGLOBIN 13.4 g/dL (12.0-18.0); MEAN CELL VOLUME 83.9 fl (80.0-94.0); MEAN CORPUSCULAR HEMOGLOBIN 27.6 pg (27.0-31.0); MEAN CORPUSCULAR HGB CONC 32.9 g/dL (33.0-37.0); RBC 4.86 Mil/uL (4.40-5.90); RED CELL DISTRIBUTION WIDTH 12.7 % (11.5-14.5); WHITE BLOOD COUNT 9.9 K/uL (4.8-10.8)
[2018-05-11 07:44] LABS: BLOOD UREA NITROGEN 19 mg/dl (9-20); CALCIUM 12.5 mg/dL (8.4-10.2); GFR NON-AFRICAN AMERICAN > 60
[2018-05-11] MEDS: Enoxaparin 40 mg Syringe SC SCH (08:49)
[2018-05-11] MEDS: Bacitracin/Neomycin/Polymyxin 30GM OINT TOP SCH ×2 (08:50→17:38)
--- NOTE | 2018-05-11 15:11 | CP.PCM.PN ---
Subjective - Date & Time of Evaluation Date of Evaluation: 05/11/18 Time of Evaluation: 15:09 - Subjective Subjective: Mr. Hager was seen and examined today at bedside in acute rehab. He continues to have left side weakness, but is optimistic and appears well. He did not have any new complaints. Objective - Vital Signs/Intake and Output Vital Signs (last 24 hours): Temp Pulse Resp BP Pulse Ox 97.8 F 82 18 137/74 98 05/11/18 09:48 05/11/18 09:48 05/11/18 09:48 05/11/18 09:48 05/11/18 09:48 - Medications Medications: Current Medications Amlodipine Besylate (Norvasc) 10 mg PO DAILY [facility] Last Admin: 05/11/18 08:49 Dose: 10 mg Aspirin (Aspirin Chewable) 81 mg PO DAILY [facility] Last Admin: 05/11/18 08:48 Dose: 81 mg Atorvastatin Calcium (Lipitor) 40 mg PO HS [facility] Last Admin: 05/10/18 21:44 Dose: 40 mg Bisacodyl (Dulcolax) 5 mg PO DAILY PRN PRN Reason: Constipation Last Admin: 05/03/18 09:07 Dose: 5 mg Enalapril Maleate (Vasotec) 20 mg PO BID [facility] Last Admin: 05/11/18 08:49 Dose: 20 mg Neomycin/Polymyxin/Bacitracin (Neosporin Antibiotic Oint) 1 applic TOP BID [facility] Last Admin: 05/11/18 08:50 Dose: 1 applic - Labs Labs: 05/11/18 05:20 05/11/18 05:20 - Constitutional Appears: Well - Head Exam Head Exam: ATRAUMATIC, NORMAL INSPECTION, NORMOCEPHALIC - Eye Exam Eye Exam: EOMI, Normal appearance, PERRL - ENT Exam ENT Exam: Mucous Membranes Moist, Normal Exam - Neck Exam Neck Exam: Full ROM, Normal Inspection. absent: Lymphadenopathy - Respiratory Exam Respiratory Exam: Clear to Ausculation Bilateral, NORMAL BREATHING PATTERN - Cardiovascular Exam Cardiovascular Exam: REGULAR RHYTHM, +S1, +S2. absent: Murmur - GI/Abdominal Exam GI & Abdominal Exam: Soft, Normal Bowel Sounds. absent: Tenderness - Back Exam Back Exam: NORMAL INSPECTION - Neurological Exam Neurological Exam: Alert, Awake, CN II-XII Intact, Oriented x3 Neuro motor strength exam: Left Upper Extremity: 0, Right Upper Extremity: 5, Left Lower Extremity: 0, Right Lower Extremity: 5 Additional comments: sustained myoclonus with 4+ reflexes on the left side. NIHSS=10 Assessment and Plan (1) Status post cerebrovascular accident Assessment & Plan: Continue aspirin, lipitor and BP management. PT/OT plan. Neurology will follow. Status: Acute
[2018-05-12] MEDS: Bacitracin/Neomycin/Polymyxin 30GM OINT TOP SCH ×2 (08:47→17:36)
[2018-05-12] MEDS: Enoxaparin 40 mg Syringe SC SCH (08:48)
--- NOTE | 2018-05-12 18:11 | CP.PCM.PN ---
Subjective - Date & Time of Evaluation Date of Evaluation: 05/12/18 Time of Evaluation: 11:00 - Subjective Subjective: Patient seen and examined. Claimed he was feeling much better and was able to sleep well. Objective - Vital Signs/Intake and Output Vital Signs (last 24 hours): Temp Pulse Resp BP Pulse Ox 97.1 F L 78 19 145/68 97 05/12/18 09:40 05/12/18 09:40 05/12/18 09:40 05/12/18 09:40 05/12/18 09:40 - Medications Medications: Current Medications Amlodipine Besylate (Norvasc) 10 mg PO DAILY [facility] Last Admin: 05/12/18 08:47 Dose: 10 mg Aspirin (Aspirin Chewable) 81 mg PO DAILY [facility] Last Admin: 05/12/18 08:47 Dose: 81 mg Atorvastatin Calcium (Lipitor) 40 mg PO HS [facility] Last Admin: 05/11/18 21:49 Dose: 40 mg Bisacodyl (Dulcolax) 5 mg PO DAILY PRN PRN Reason: Constipation Last Admin: 05/03/18 09:07 Dose: 5 mg Diphenhydramine HCl (Benadryl) 25 mg PO Q6 PRN PRN Reason: Itching / Pruritus Enalapril Maleate (Vasotec) 20 mg PO BID [facility] Last Admin: 05/12/18 17:36 Dose: 20 mg Enoxaparin Sodium (Lovenox) 40 mg SC DAILY [facility]; Protocol Last Admin: 05/12/18 08:48 Dose: 40 mg Lactic Acid (Lac-Hydrin 12% Cream (140 G)) 1 ea TOP Q12 [facility] Neomycin/Polymyxin/Bacitracin (Neosporin Antibiotic Oint) 1 applic TOP BID [facility] Last Admin: 05/12/18 17:36 Dose: 1 applic Temazepam (Restoril) 15 mg PO HS PRN PRN Reason: Insomnia Last Admin: 05/11/18 21:50 Dose: 15 mg - Labs Labs: 05/11/18 05:20 05/11/18 05:20 - Constitutional Appears: No Acute Distress - Head Exam Head Exam: ATRAUMATIC - Eye Exam Eye Exam: absent: Scleral icterus - ENT Exam ENT Exam: Mucous Membranes Moist - Neck Exam Neck Exam: absent: Meningismus - Respiratory Exam Respiratory Exam: absent: Rales, Rhonchi, Wheezes, Respiratory Distress - Cardiovascular Exam Cardiovascular Exam: REGULAR RHYTHM, +S1, +S2 - GI/Abdominal Exam GI & Abdominal Exam: Soft. absent: Tenderness - Rectal Exam Rectal Exam: Deferred - Neurological Exam Neurological Exam: Alert, Oriented x3 - Psychiatric Exam Psychiatric exam: Normal Affect - Skin Skin Exam: Dry, Intact Assessment and Plan - Assessment and Plan (Free Text) Assessment: 57 yo male with no significant PMH was initially admitted at [facility] because of Right MCA CVA on 04/17/18. He was transferred to Acute Rehab on 04/22/18 for continuation of PT. 1. Status post cerebrovascular accident Continue PT /OT / speech therapy On ASA, Statin monitor and control BP 2. Hypertension BP controlled continue Enalapril and Norvasc 3. HLD (hyperlipidemia) continue Lipitor 4.DVT prophylaxis Lovenox 40mg SC daily
[2018-05-12] MEDS: Ammonium Lactate 12% Cream (140 g) TOP SCH (21:50)
[2018-05-13] MEDS: Bacitracin/Neomycin/Polymyxin 30GM OINT TOP SCH ×2 (08:47→17:22)
[2018-05-13] MEDS: Enoxaparin 40 mg Syringe SC SCH (08:47)
[2018-05-13] MEDS: Ammonium Lactate 12% Cream (140 g) TOP SCH ×2 (08:47→21:49)
--- NOTE | 2018-05-13 13:03 | CP.PCM.PN ---
Subjective - Date & Time of Evaluation Date of Evaluation: 05/13/18 Time of Evaluation: 11:00 - Subjective Subjective: no acute complaints at present Objective - Vital Signs/Intake and Output Vital Signs (last 24 hours): Temp Pulse Resp BP Pulse Ox 97.5 F L 74 18 151/77 H 100 05/13/18 08:44 05/13/18 08:46 05/13/18 08:44 05/13/18 08:46 05/13/18 08:44 - Medications Medications: Current Medications Amlodipine Besylate (Norvasc) 10 mg PO DAILY [facility] Last Admin: 05/13/18 08:46 Dose: 10 mg Aspirin (Aspirin Chewable) 81 mg PO DAILY [facility] Last Admin: 05/13/18 08:47 Dose: 81 mg Atorvastatin Calcium (Lipitor) 40 mg PO HS [facility] Last Admin: 05/12/18 21:44 Dose: 40 mg Bisacodyl (Dulcolax) 5 mg PO DAILY PRN PRN Reason: Constipation Last Admin: 05/03/18 09:07 Dose: 5 mg Diphenhydramine HCl (Benadryl) 25 mg PO Q6 PRN PRN Reason: Itching / Pruritus Enalapril Maleate (Vasotec) 20 mg PO BID [facility] Last Admin: 05/13/18 08:47 Dose: 20 mg Enoxaparin Sodium (Lovenox) 40 mg SC DAILY [facility]; Protocol Last Admin: 05/13/18 08:47 Dose: 40 mg Lactic Acid (Lac-Hydrin 12% Cream (140 G)) 1 ea TOP Q12 [facility] Last Admin: 05/13/18 08:47 Dose: 1 applic Neomycin/Polymyxin/Bacitracin (Neosporin Antibiotic Oint) 1 applic TOP BID [facility] Last Admin: 05/13/18 08:47 Dose: 1 applic Temazepam (Restoril) 15 mg PO HS PRN PRN Reason: Insomnia Last Admin: 05/12/18 21:44 Dose: 15 mg - Labs Labs: 05/11/18 05:20 05/11/18 05:20 - Head Exam Head Exam: ATRAUMATIC, NORMAL INSPECTION, NORMOCEPHALIC - Eye Exam Eye Exam: EOMI, Normal appearance, PERRL Pupil Exam: NORMAL ACCOMODATION - ENT Exam ENT Exam: Mucous Membranes Moist, Normal Exam - Neck Exam Neck Exam: Normal Inspection - Respiratory Exam Respiratory Exam: Clear to Ausculation Bilateral, NORMAL BREATHING PATTERN - Cardiovascular Exam Cardiovascular Exam: REGULAR RHYTHM - GI/Abdominal Exam GI & Abdominal Exam: Soft, Normal Bowel Sounds - Rectal Exam Rectal Exam: NORMAL INSPECTION - Exam External exam: NORMAL EXTERNAL EXAM - Extremities Exam Extremities Exam: Full ROM, Normal Capillary Refill, Normal Inspection - Back Exam Back Exam: NORMAL INSPECTION - Neurological Exam Neurological Exam: Alert, Awake Neuro motor strength exam: Left Upper Extremity: 2/1, Left Lower Extremity: 2/1 - Psychiatric Exam Psychiatric exam: Normal Affect, Normal Mood - Skin Skin Exam: Dry, Intact Assessment and Plan (1) DVT prophylaxis Status: Acute (2) HLD (hyperlipidemia) Status: Chronic (3) Status post cerebrovascular accident Assessment & Plan: plan fo rphysical, occupational, rec therapy, getting return in the leg and arm Status: Acute
--- NOTE | 2018-05-13 15:51 | CP.PCM.PN ---
Subjective - Date & Time of Evaluation Date of Evaluation: 05/13/18 Time of Evaluation: 15:47 - Subjective Subjective: Mr. Hager was seen and examined today at bedside. He continues to have left side weakness, but is cognitively intact and motivated. I was informed that during therapy today, the patient was able to stand, but has retropulsion and my oclonus of the left lower extremity. Objective - Vital Signs/Intake and Output Vital Signs (last 24 hours): Temp Pulse Resp BP Pulse Ox 97.5 F L 74 18 151/77 H 100 05/13/18 08:44 05/13/18 08:46 05/13/18 08:44 05/13/18 08:46 05/13/18 08:44 - Medications Medications: Current Medications Amlodipine Besylate (Norvasc) 10 mg PO DAILY [facility] Last Admin: 05/13/18 08:46 Dose: 10 mg Aspirin (Aspirin Chewable) 81 mg PO DAILY [facility] Last Admin: 05/13/18 08:47 Dose: 81 mg Atorvastatin Calcium (Lipitor) 40 mg PO HS [facility] Last Admin: 05/12/18 21:44 Dose: 40 mg Bisacodyl (Dulcolax) 5 mg PO DAILY PRN PRN Reason: Constipation Last Admin: 05/03/18 09:07 Dose: 5 mg Diphenhydramine HCl (Benadryl) 25 mg PO Q6 PRN PRN Reason: Itching / Pruritus Enalapril Maleate (Vasotec) 20 mg PO BID [facility] Last Admin: 05/13/18 08:47 Dose: 20 mg Enoxaparin Sodium (Lovenox) 40 mg SC DAILY [facility]; Protocol Last Admin: 05/13/18 08:47 Dose: 40 mg Lactic Acid (Lac-Hydrin 12% Cream (140 G)) 1 ea TOP Q12 [facility] Last Admin: 05/13/18 08:47 Dose: 1 applic Neomycin/Polymyxin/Bacitracin (Neosporin Antibiotic Oint) 1 applic TOP BID [facility] Last Admin: 05/13/18 08:47 Dose: 1 applic Temazepam (Restoril) 15 mg PO HS PRN PRN Reason: Insomnia Last Admin: 05/12/18 21:44 Dose: 15 mg - Labs Labs: 05/11/18 05:20 05/11/18 05:20 - Constitutional Appears: Well - Head Exam Head Exam: ATRAUMATIC, NORMAL INSPECTION, NORMOCEPHALIC - Eye Exam Eye Exam: EOMI, Normal appearance, PERRL - ENT Exam ENT Exam: Mucous Membranes Moist, Normal Exam - Neck Exam Neck Exam: Full ROM, Normal Inspection. absent: Lymphadenopathy - Respiratory Exam Respiratory Exam: Clear to Ausculation Bilateral, NORMAL BREATHING PATTERN - Cardiovascular Exam Cardiovascular Exam: REGULAR RHYTHM, +S1, +S2. absent: Murmur - Rectal Exam Rectal Exam: Deferred - Neurological Exam Neurological Exam: Alert, Awake, CN II-XII Intact, Oriented x3 Neuro motor strength exam: Left Upper Extremity: 2/1, Right Upper Extremity: 5, Left Lower Extremity: 2/1, Right Lower Extremity: 5 - Psychiatric Exam Psychiatric exam: Normal Affect, Normal Mood Assessment and Plan (1) Status post cerebrovascular accident Assessment & Plan: Continue PT/OT as planned. I would recommend against using muscle relaxants or baclofen at this time since it may inhibit important feedback during PT. However, I will defer to the acute rehab team for the decision. Continue asp irin, lipitor and controlling BP for secondary stroke prevention. Status: Acute
[2018-05-14 06:15] LABS: HEMOGLOBIN 13.4 g/dL (12.0-18.0); MEAN CELL VOLUME 83.7 fl (80.0-94.0); MEAN CORPUSCULAR HEMOGLOBIN 27.7 pg (27.0-31.0); MEAN CORPUSCULAR HGB CONC 33.1 g/dL (33.0-37.0); RBC 4.82 Mil/uL (4.40-5.90); RED CELL DISTRIBUTION WIDTH 12.7 % (11.5-14.5); WHITE BLOOD COUNT 8.5 K/uL (4.8-10.8)
[2018-05-14 06:22] LABS: BLOOD UREA NITROGEN 22 mg/dl (9-20); CALCIUM 12.5 mg/dL (8.4-10.2); GFR NON-AFRICAN AMERICAN 57
[2018-05-14] MEDS: Enoxaparin 40 mg Syringe SC SCH (09:19)
[2018-05-14] MEDS: Ammonium Lactate 12% Cream (140 g) TOP SCH ×2 (09:20→21:18)
[2018-05-14] MEDS: Bacitracin/Neomycin/Polymyxin 30GM OINT TOP SCH ×2 (09:20→17:26)
--- NOTE | 2018-05-14 12:16 | PSY.TMCNF ---
Nursing - Vital Signs Vital Signs (Last 8 hours): Vital Signs 05/14/18 05/14/18 05/14/18 08:30 09:00 09:18 Temperature 97.9 F 97.9 F Pulse Rate 76 76 Respiratory 19 19 Rate Blood Pressure 145/83 145/83 145/83 O2 Sat by Pulse 100 Oximetry Pain: 0 - Precautions: Precautions: Fall Prevention, Aspiration, Pressure Ulcer - Medications/Other Issues Comment: Needs encouragement to increase paticipation with ADL's - Consults Comment: Dr. Forbes, Dr. Heck, Dr. Carlisle, Dr. Cabral - Toileting Toileting: Maximal Assistance - Bladder Management Bladder Pattern: Normal Voiding Method: Urinal Bladder Management: Supervision Frequency of Accidents: 0 - Bowel Management Bowel Pattern: Normal Bowel Management: Moderate Assistance Frequency of Accidents: 0 - Transfers Transfers: Dependent - ADL's ADL's: Maximal Assistance - Pain Management Comments: denies pain - Patient/Family Teaching Comments: CARE POST CVA AND SAFETY PRECAUTIONS - Goals/Time Frame Comments: PER MULTIDISCIPLINARY CARE PLAN GOALS - Provider Provider: SHWETA TAMN RN CRRN Physical Therapy - Bed Mobility Bed Mobility: Verbal Cues, Maximum Assistance - Transfers Wheelchair to Mat: Verbal Cues, Maximum Assistance Sit to Stand: Verbal Cues, Maximum Assistance Comment: posterior leaning during all transfers - Ambulation Level of Assistance: Maximum Assistance Distance (ft.): 15 Orthoses: L DF wrap Comment: -WINDOW ASSEMBLER on R to try and improve midline control and prevent posterior leaning; assistance with LLE swing/stabilization. *trunk extension with impaired ability to follow verbal cues to improve postural control. *mirror feedback minimally effective as treatment technique - Stair Negotiation Stairs: Level of Assistance: Not Tested - Standing Balance Static Stand: Maximal Assistance Dynamic Stand: Maximal Assistance, Dependent - Pain Pain (assessed during therapy session): 0 - Insight/Carryover Insight/Carryover: Fair - Patient/Family Education Comment: --adl/transfers/mobility training. --inhibitory strategies for trunk, LUE/LLE for improve transfers/sit<->stand, mobility. --adaptive/compensatory strategies for transfers/self care, mobility. --ROM/stretches to LUE throughout. -review sequencing/steps to transfers/mobility. -pt needs additional training to increase carryover/understanding. -LUE positioning management. -self ROM - Assessment/Plan Assessment: Pt is a 57 year old R handed male with dx: acute CVA with L hemiparesis. *Precautions: falls, aspiration precautions, + impulsivity. Pt with the following impairments: -impaired motor control LUE/LLE. -impaired motor control trunk. -impaired proprioception of trunk/body/LUE. -impaired sensation LUE. -impaired insight/safety awareness. -impaired knowlege of adaptive/compensatory strategies---which affect function/carryover with self care, transfers/mobility and Iadls. Pt will continue skilled occupational therapy to address imparments as needed to maximize function in daily living tasks. Pt continues to make steady gains in functional mobility/transfers/self care. Pt will likely need LENI after acute rehab due to extent of CVA/impairments. Pt responds well to repetition of performnace components such as weightshifting/anterior trunk flexion as needed for safer transfers. Pt educated on importance of self ROM/management of LUE for improve recovery. G oal: overall min assist & verbal cues for self care transfers/mobility with assistive device in 4 weeks - Goals Timeframe: 8 days Goals: -GROOMING: S/setup seated wash face, comb hair, wash/dry B hands seated. -UPPER BODY DRESSING: Pt to don/doff upper garment with moderate assist and verbal cues with denise-techniques. -LOWER BODY DRESSING: Moderate assist & verbal cues with assistive device. -TOILETING: Moderate assist andverbal cues with assistive device. -TRANSFERS:<->bed, commode, w/c, other surfcaes with Moderate assist & verbal cues 100% of time. -BED MOBILITY: Min/Moderate sasist and verbal cues supine<->sit, roll B sides, bridge. -LUE TONE: Normalize to moderate level. -W/C PROPULSION: 75 feet with CS and verbal cues steering with RLE/push with RUE--hem-technique - Provider Therapist: Viviana Welsh PT, DPT License Number: [id number] Occupational Therapy - Arousal/Attention/Orientation Patient Orientation: Person, Place, Time, Appropriate to Age, Appropriate to Situation - ADL/IADL Self Feeding: Set-up Help Grooming: Verbal Cues, Set-up Help, Minimal Assistance Bathing-Upper Extremity: Maximum Assistance Bathing-Lower Extremity: Dependent Dressing-Upper Extremity: Verbal Cues, Set-up Help, Moderate Assistance Dressing-Lower Extremity: Maximum Assistance - Sitting Balance Static Sitting: Minimal Assistance Dynamic Sitting: Minimal Assistance, Moderate Assistance Comment: seated unsupported at edge of bed - Transfers Wheelchair to Bed Transfers: Verbal Cues, Set-up Help, Moderate Assistance, Maximum Assistance Toilet Transfers: Verbal Cues, Set-up Help, Moderate Assistance - Wheelchair Management Level of Assistance: Minimal Assistance Distance (ft.): 50 - Upper Extremity Status Right Upper Extremity Comment: AROM WFLs. strength 4+/5 t/o Left Upper Extremity Comment: ---PROM WFLs--tight @ end range. --severe tone in L shoulder adductors/internal rotators, elbow flexors/pronators, min tone in L digits, moderate tone in wrist fexors. Spasticity greatly impacts on function in self care, transfers/mobility. Pt able felex gravity eleiminated, but more tonal/spasticity--unable to extend L elbow - Pain Pain (assessed during therapy session): 0 - Insight/Carryover Insight/Carryover: Fair - Patient/Family Education Comment: --adl/transfers/mobility training. --inhibitory strategies for trunk, LUE/LLE for improve transfers/sit<->stand, mobility. --adaptive/compensatory strategies for transfers/self care, mobility. --ROM/stretches to LUE throughout. -review sequencing/steps to transfers/mobility. -pt needs additional training to increase carryover/understanding. -LUE positioning management. -self ROM - Assessment/Plan Assessment: Pt is a 57 year old R handed male with dx: acute CVA with L hemiparesis. *Precautions: falls, aspiration precautions, + impulsivity. Pt with the following impairments: -impaired motor control LUE/LLE. -impaired motor control trunk. -impaired proprioception of trunk/body/LUE. -impaired sensation LUE. -impaired insight/safety awareness. -impaired knowlege of adaptive/compensatory strategies---which affect function/carryover with self care, transfers/mobility and Iadls. Pt will continue skilled occupational therapy to address imparments as needed to maximize function in daily living tasks. Pt continues to make steady gains in functional mobility/transfers/self care. Pt will likely need LENI after acute rehab due to extent of CVA/impairments. Pt responds well to repetition of performnace components such as weightshifting/anterior trunk flexion as needed for safer transfers. Pt educated on importance of self ROM/management of LUE for improve recovery. Goal: overall min assist & verbal cues for self care transfers/mobility with assistive device in 4 weeks - Goals Timeframe: 8 days Goals: -GROOMING: S/setup seated wash face, comb hair, wash/dry B hands seated. -UPPER BODY DRESSING: Pt to don/doff upper garment with moderate assist and verbal cues with denise-techniques. -LOWER BODY DRESSING: Moderate assist & verbal cues with assistive device. -TOILETING: Moderate assist andverbal cues with assistive device. -TRANSFERS:<->bed, commode, w/c, other surfcaes with Moderate assist & verbal cues 100% of time. -BED MOBILITY: Min/Moderate sasist and verbal cues supine<->sit, roll B sides, bridge. -LUE TONE: Normalize to mo derate level. -W/C PROPULSION: 75 feet with CS and verbal cues steering with RLE/push with RUE--hem-technique - Provider Therapist: Kerry Lezama OTR/L License Number: [id number] Speech Therapy - Consult Information Patient on Program: Yes Medical Diagnosis: CVA Treatment Diagnosis: -mild-moderate cognitive deficits. -mild-moderate dysarthria. -mild oral dysphagia - Assessment Problem Solving Impairment: Mild Memory Impairment: Mild Speech/Articulation Impairment: Moderate Comment: mild-moderate Dysphagia/Swallowing Impairment: Mild - Plan Assessment: Pt is a 57 year old R handed male with dx: acute CVA with L hemiparesis. *Precautions: falls, aspiration precautions, + impulsivity. Pt with the following impairments: -impaired motor control LUE/LLE. -impaired motor control trunk. -impaired proprioception of trunk/body/LUE. -impaired sensation LUE. -impaired insight/safety awareness. -impaired knowlege of adaptive/compensatory strategies---which affect function/carryover with self care, transfers/mobility and Iadls. Pt will continue skilled occupational therapy to address imparments as needed to maximize function in daily living tasks. Pt continues to make steady gains in functional mobility/transfers/self care. Pt will likely need LENI after acute rehab due to extent of CVA/impairments. Pt responds well to repetition of performnace components such as weightshifting/anterior trunk flexion as needed for safer transfers. Pt educated on importance of self ROM/management of LUE for improve recovery. Goal: overall min assist & verbal cues for self care transfers/mobility with assistive device in 4 weeks - Provider Therapist: Anju Petersen License Number: [id number] Recreational Therapy - Participation Participation: Participates in Individual and/or Group Sessions - Attendance Attendance: 3-5 times per week - Activities Leisure Activities: Cards and Games - Socialization Level of Socialization: Initiates/interacts freely with care givers and peer - Diversional Time Diversional Time: listening to music, television - Assessment Assessment/Plan: Pt is a 57 year old R handed male with dx: acute CVA with L hemiparesis. *Precautions: falls, aspiration precautions, + impulsivity. Pt with the following impairments: -impaired motor control LUE/LLE. -impaired motor control trunk. -impaired proprioception of trunk/body/LUE. -impaired sensation LUE. -impaired insight/safety awareness. -impaired knowlege of adaptive/compensatory strategies---which affect function/carryover with self care, transfers/mobility and Iadls. Pt will continue skilled occupational therapy to address imparments as needed to maximize function in daily living tasks. Pt continues to make steady gains in functional mobility/transfers/self care. Pt will likely need LENI after acute rehab due to extent of CVA/impairments. Pt responds well to repetition of performnace components such as weightshifting/anterior trunk flexion as needed for safer transfers. Pt educated on importance of self ROM/management of LUE for improve recovery. Goal: overall min assist & verbal cues for self care transfers/mobility with assistive device in 4 weeks - Provider Therapist: Anne Multani, SHUTTLE REPAIRER #[id number] Nutrition - Current Diet Current Diet/ Supplement/ Feedings: advanced bite size thin liquids 2 gram Na ensure plus 8 ounces 2 per day - Appetite Percent Meal Consumed: 50-74% - Comments Comments: CARE POST CVA AND SAFETY PRECAUTIONS - Assessment/Goals/Time Frame Assessment/Goals/Time Frame: Needs encouragement to increase paticipation with ADL's - Provider Provider: Yue Villegas RD Case Management - Psychosocial Assessment Support Systems: [facility] Doug ([facility]) [phone] Psychological Interventions/Needs: Patient is alert with impairments in safety awareness and insight Discharge Concerns: Patient currently requiring max A for functional mobility, patient with over 30 steps at home to negotiate Patient/Family Meeting: CM met with patient and rehab team Intervention/Goal/Outcome:: 1. Goal: Min A. 2. Plan: LENI- list provided with list, unsure of top 3- CM to continue following. 3. Tentative discharge date: 05/16/2018. 4. continued emotional support. 5. continued stay auth, LAD: 05/13- updates to be faxed at that time - Discharge Plan Discharge Plan: Subacute care - Provider Provider: JERMAINE Bianchi, TMD TEACHER License Number: [id number] Rehabilitation Plan - Treatment Plan Treatment Plan: Physical Therapy, Occupational Therapy, Speech, Dietary, Patient/Family Education - Recommendation Recommendation: Physical Therapy, Occupational Therapy, Speech, Dietary, Patient/Family Education - Discharge Plan Discharge to: Subacute (12 for subacute)
--- NOTE | 2018-05-14 12:40 | CP.PCM.PN ---
Subjective - Date & Time of Evaluation Date of Evaluation: 05/14/18 Time of Evaluation: 10:00 - Subjective Subjective: no acute complaints at happy about more return in the arm and leg Objective - Vital Signs/Intake and Output Vital Signs (last 24 hours): Temp Pulse Resp BP Pulse Ox 97.9 F 76 19 145/83 100 05/14/18 09:00 05/14/18 09:00 05/14/18 09:00 05/14/18 09:18 05/14/18 08:30 - Medications Medications: Current Medications Amlodipine Besylate (Norvasc) 10 mg PO DAILY [facility] Last Admin: 05/14/18 09:18 Dose: 10 mg Aspirin (Aspirin Chewable) 81 mg PO DAILY [facility] Last Admin: 05/14/18 09:19 Dose: 81 mg Atorvastatin Calcium (Lipitor) 40 mg PO HS [facility] Last Admin: 05/13/18 21:49 Dose: 40 mg Bisacodyl (Dulcolax) 5 mg PO DAILY PRN PRN Reason: Constipation Last Admin: 05/03/18 09:07 Dose: 5 mg Diphenhydramine HCl (Benadryl) 25 mg PO Q6 PRN PRN Reason: Itching / Pruritus Last Admin: 05/13/18 17:25 Dose: 25 mg Enalapril Maleate (Vasotec) 20 mg PO BID [facility] Last Admin: 05/14/18 09:19 Dose: 20 mg Enoxaparin Sodium (Lovenox) 40 mg SC DAILY [facility]; Protocol Last Admin: 05/14/18 09:19 Dose: 40 mg Lactic Acid (Lac-Hydrin 12% Cream (140 G)) 1 ea TOP Q12 [facility] Last Admin: 05/14/18 09:20 Dose: 1 applic Neomycin/Polymyxin/Bacitracin (Neosporin Antibiotic Oint) 1 applic TOP BID [facility] Last Admin: 05/14/18 09:20 Dose: 1 applic Temazepam (Restoril) 15 mg PO HS PRN PRN Reason: Insomnia Last Admin: 05/13/18 21:49 Dose: 15 mg - Labs Labs: 05/14/18 05:20 05/14/18 05:20 - Head Exam Head Exam: ATRAUMATIC, NORMAL INSPECTION, NORMOCEPHALIC - Eye Exam Eye Exam: EOMI, Normal appearance, PERRL Pupil Exam: NORMAL ACCOMODATION - ENT Exam ENT Exam: Mucous Membranes Moist, Normal Exam - Neck Exam Neck Exam: Full ROM, Normal Inspection - Respiratory Exam Respiratory Exam: NORMAL BREATHING PATTERN - Cardiovascular Exam Cardiovascular Exam: REGULAR RHYTHM - GI/Abdominal Exam GI & Abdominal Exam: Soft, Normal Bowel Sounds - Rectal Exam Rectal Exam: NORMAL INSPECTION - Exam External exam: NORMAL EXTERNAL EXAM - Extremities Exam Extremities Exam: Full ROM, Normal Capillary Refill - Back Exam Back Exam: NORMAL INSPECTION - Neurological Exam Neurological Exam: Alert, Awake Neuro motor strength exam: Left Upper Extremity: 2/1, Left Lower Extremity: 2/1 - Psychiatric Exam Psychiatric exam: Normal Affect - Skin Skin Exam: Dry, Intact Assessment and Plan (1) DVT prophylaxis Status: Acute (2) HLD (hyperlipidemia) Status: Chronic (3) Status post cerebrovascular accident Assessment & Plan: patient getting more synergy in the arm and more return of strenght in the leg, status post team conference , patient will benefit from additional acute rehab setting for additional days Status: Acute
--- NOTE | 2018-05-14 16:30 | CP.PCM.PN ---
Subjective - Date & Time of Evaluation Date of Evaluation: 05/14/18 Time of Evaluation: 16:26 - Subjective Subjective: sleeping well now very slow to improve Objective - Vital Signs/Intake and Output Vital Signs (last 24 hours): Temp Pulse Resp BP Pulse Ox 97.9 F 76 19 145/83 100 05/14/18 09:00 05/14/18 09:00 05/14/18 09:00 05/14/18 09:18 05/14/18 08:30 - Medications Medications: Current Medications Amlodipine Besylate (Norvasc) 10 mg PO DAILY [facility] Last Admin: 05/14/18 09:18 Dose: 10 mg Aspirin (Aspirin Chewable) 81 mg PO DAILY [facility] Last Admin: 05/14/18 09:19 Dose: 81 mg Atorvastatin Calcium (Lipitor) 40 mg PO HS [facility] Last Admin: 05/13/18 21:49 Dose: 40 mg Bisacodyl (Dulcolax) 5 mg PO DAILY PRN PRN Reason: Constipation Last Admin: 05/03/18 09:07 Dose: 5 mg Diphenhydramine HCl (Benadryl) 25 mg PO Q6 PRN PRN Reason: Itching / Pruritus Last Admin: 05/13/18 17:25 Dose: 25 mg Enalapril Maleate (Vasotec) 20 mg PO BID [facility] Last Admin: 05/14/18 09:19 Dose: 20 mg Enoxaparin Sodium (Lovenox) 40 mg SC DAILY [facility]; Protocol Last Admin: 05/14/18 09:19 Dose: 40 mg Lactic Acid (Lac-Hydrin 12% Cream (140 G)) 1 ea TOP Q12 [facility] Last Admin: 05/14/18 09:20 Dose: 1 applic Neomycin/Polymyxin/Bacitracin (Neosporin Antibiotic Oint) 1 applic TOP BID [facility] Last Admin: 05/14/18 09:20 Dose: 1 applic Temazepam (Restoril) 15 mg PO HS PRN PRN Reason: Insomnia Last Admin: 05/13/18 21:49 Dose: 15 mg Zinc Sulfate (Zinc Sulfate 220 Mg Cap) 220 mg PO DAILY [facility] - Labs Labs: 05/14/18 05:20 05/14/18 05:20 - Constitutional Appears: Non-toxic, No Acute Distress - Head Exam Head Exam: NORMAL INSPECTION - Respiratory Exam Respiratory Exam: Clear to Ausculation Bilateral, NORMAL BREATHING PATTERN. absent: Rales, Rhonchi, Wheezes - Cardiovascular Exam Cardiovascular Exam: REGULAR RHYTHM, +S1, +S2 - GI/Abdominal Exam GI & Abdominal Exam: Soft, Normal Bowel Sounds. absent: Tenderness - Neurological Exam Neurological Exam: Alert, Awake, Oriented x3 Neuro motor strength exam: Left Upper Extremity: 0, Right Upper Extremity: 5, Left Lower Extremity: 0, Right Lower Extremity: 5 Assessment and Plan - Assessment and Plan (Free Text) Assessment: 57 yo male with no significant PMH was initially admitted at [facility] because of Right MCA CVA on 04/17/18. He was transferred to Acute Rehab on 04/22/18 for continuation of PT.Participating with PT and improving . Still with left side flacid 1. Status post cerebrovascular accident Continue PT /OT / speech therapy On ASA, Statin monitor and control BP 2. Hypertension BP elevated on Enalapril to 20mg PO BID Will start Norvasc 5 mg po QD today 3. HLD (hyperlipidemia) on statin 4.DVT prophylaxis Lovenox 40mg SC daily 5. Sleep: stopped ambien trial restoril
[2018-05-15] MEDS: Enoxaparin 40 mg Syringe SC SCH (08:14)
[2018-05-15] MEDS: Ammonium Lactate 12% Cream (140 g) TOP SCH ×2 (08:15→21:21)
[2018-05-15] MEDS: Magnesium Oxide 400 mg Tab UD PO SCH (08:16)
[2018-05-15] MEDS: Bacitracin/Neomycin/Polymyxin 30GM OINT TOP SCH ×2 (08:16→16:25)
--- NOTE | 2018-05-15 15:20 | CP.PCM.PN ---
Subjective - Date & Time of Evaluation Date of Evaluation: 05/12/18 Time of Evaluation: 17:00 - Subjective Subjective: no acute complaints at present Objective - Vital Signs/Intake and Output Vital Signs (last 24 hours): Temp Pulse Resp BP Pulse Ox 97.1 F L 78 19 144/78 98 05/15/18 10:00 05/15/18 10:00 05/15/18 10:00 05/15/18 10:00 05/15/18 10:00 - Medications Medications: Current Medications Amlodipine Besylate (Norvasc) 10 mg PO DAILY [facility] Last Admin: 05/15/18 08:16 Dose: 10 mg Aspirin (Aspirin Chewable) 81 mg PO DAILY [facility] Last Admin: 05/15/18 08:15 Dose: 81 mg Atorvastatin Calcium (Lipitor) 40 mg PO HS [facility] Last Admin: 05/14/18 21:18 Dose: 40 mg Bisacodyl (Dulcolax) 5 mg PO DAILY PRN PRN Reason: Constipation Last Admin: 05/03/18 09:07 Dose: 5 mg Diphenhydramine HCl (Benadryl) 25 mg PO Q6 PRN PRN Reason: Itching / Pruritus Last Admin: 05/13/18 17:25 Dose: 25 mg Enalapril Maleate (Vasotec) 20 mg PO BID [facility] Last Admin: 05/15/18 08:17 Dose: 20 mg Enoxaparin Sodium (Lovenox) 40 mg SC DAILY [facility]; Protocol Last Admin: 05/15/18 08:14 Dose: 40 mg Lactic Acid (Lac-Hydrin 12% Cream (140 G)) 1 ea TOP Q12 [facility] Last Admin: 05/15/18 08:15 Dose: 1 applic Magnesium Oxide (Mag-Ox) 400 mg PO DAILY [facility] Last Admin: 05/15/18 08:16 Dose: 400 mg Neomycin/Polymyxin/Bacitracin (Neosporin Antibiotic Oint) 1 applic TOP BID [facility] Last Admin: 05/15/18 08:16 Dose: 1 applic Temazepam (Restoril) 15 mg PO HS PRN PRN Reason: Insomnia Last Admin: 05/13/18 21:49 Dose: 15 mg Zinc Sulfate (Zinc Sulfate 220 Mg Cap) 220 mg PO DAILY [facility] Last Admin: 05/15/18 08:15 Dose: 220 mg - Labs Labs: 05/14/18 05:20 05/14/18 05:20 - Head Exam Head Exam: ATRAUMATIC, NORMAL INSPECTION, NORMOCEPHALIC - Eye Exam Eye Exam: EOMI, Normal appearance, PERRL Pupil Exam: NORMAL ACCOMODATION, PERRL - ENT Exam ENT Exam: Mucous Membranes Moist, Normal Exam - Neck Exam Neck Exam: Full ROM, Normal Inspection - Respiratory Exam Respiratory Exam: Clear to Ausculation Bilateral, NORMAL BREATHING PATTERN - Cardiovascular Exam Cardiovascular Exam: REGULAR RHYTHM - GI/Abdominal Exam GI & Abdominal Exam: Soft, Normal Bowel Sounds - Rectal Exam Rectal Exam: NORMAL INSPECTION - Exam External exam: NORMAL EXTERNAL EXAM - Extremities Exam Extremities Exam: Full ROM, Normal Capillary Refill, Normal Inspection - Back Exam Back Exam: NORMAL INSPECTION - Neurological Exam Neurological Exam: Alert, Awake Neuro motor strength exam: Left Upper Extremity: 2/1, Right Upper Extremity: 3, Left Lower Extremity: 2/1, Right Lower Extremity: 3 - Psychiatric Exam Psychiatric exam: Normal Affect, Normal Mood - Skin Skin Exam: Dry, Normal Color Assessment and Plan (1) DVT prophylaxis Status: Acute (2) HLD (hyperlipidemia) Status: Chronic (3) Status post cerebrovascular accident Assessment & Plan: plan for physical, occupational, rec and speech therapy program follow up with cardiology and neurology Status: Acute
--- NOTE | 2018-05-16 07:51 | CP.PCM.CON ---
History of Present Illness - History of Present Illness History of Present Illness: Pt seen for sup therapy 7:22-7:40. pt spoke of remaining positive and gains made. Pt discussed healing, beginning ambulation and the support of his family. Pt spoke of continued rehab, and optimism for healing. Dysphoria reduced with gains made and positive treatment. Pt adjusting well. plan: continued sup therapy as his depression may increase if their is a plateau in his gains Past Patient History - Past Medical History & Family History Past Medical History?: No - Past Social History Smoking Status: Never Smoked - CARDIAC Hx Cardiac Disorders: No - PULMONARY Hx Respiratory Disorders: No - NEUROLOGICAL HX Cerebrovascular Accident: Yes - HEENT Hx HEENT Problems: No - RENAL Hx Chronic Kidney Disease: No - ENDOCRINE/METABOLIC Hx Endocrine Disorders: No - HEMATOLOGICAL/ONCOLOGICAL Hx Blood Disorders: No - INTEGUMENTARY Hx Dermatological Problems: No - MUSCULOSKELETAL/RHEUMATOLOGICAL Hx Falls: Yes - GASTROINTESTINAL Hx Gastrointestinal Disorders: No - GENITOURINARY/GYNECOLOGICAL Hx Genitourinary Disorders: No - PSYCHIATRIC Hx Substance Use: No - SURGICAL HISTORY Hx Surgeries: No - ANESTHESIA Hx Anesthesia: No Meds Allergies/Adverse Reactions: Allergies Allergy/AdvReac Type Severity Reaction Status Date / Time No Known Allergies Allergy Verified 04/22/18 21:20 - Medications Medications: Current Medications Amlodipine Besylate (Norvasc) 10 mg PO DAILY [facility] Last Admin: 05/15/18 08:16 Dose: 10 mg Aspirin (Aspirin Chewable) 81 mg PO DAILY [facility] Last Admin: 05/15/18 08:15 Dose: 81 mg Atorvastatin Calcium (Lipitor) 40 mg PO [facility] Last Admin: 05/15/18 21:21 Dose: 40 mg Bisacodyl (Dulcolax) 5 mg PO DAILY PRN PRN Reason: Constipation Last Admin: 05/03/18 09:07 Dose: 5 mg Diphenhydramine HCl (Benadryl) 25 mg PO Q6 PRN PRN Reason: Itching / Pruritus Last Admin: 05/13/18 17:25 Dose: 25 mg Enalapril Maleate (Vasotec) 20 mg PO BID [facility] Last Admin: 05/15/18 16:24 Dose: 20 mg Enoxaparin Sodium (Lovenox) 40 mg SC DAILY [facility]; Protocol Last Admin: 05/15/18 08:14 Dose: 40 mg Lactic Acid (Lac-Hydrin 12% Cream (140 G)) 1 ea TOP Q12 [facility] Last Admin: 05/15/18 21:21 Dose: 1 applic Magnesium Oxide (Mag-Ox) 400 mg PO DAILY [facility] Last Admin: 05/15/18 08:16 Dose: 400 mg Neomycin/Polymyxin/Bacitracin (Neosporin Antibiotic Oint) 1 applic TOP BID [facility] Last Admin: 05/15/18 16:25 Dose: 1 applic Temazepam (Restoril) 15 mg PO HS PRN PRN Reason: Insomnia Last Admin: 05/13/18 21:49 Dose: 15 mg Zinc Sulfate (Zinc Sulfate 220 Mg Cap) 220 mg PO DAILY [facility] Last Admin: 05/15/18 08:15 Dose: 220 mg Results - Vital Signs Recent Vital Signs: Last Vital Signs Temp 97.7 F 05/16/18 07:44 Pulse 74 05/16/18 07:44 Resp 18 05/16/18 07:44 BP 148/81 05/16/18 07:44 Pulse Ox 99 05/16/18 07:44 - Labs Result Diagrams: 05/14/18 05:20 05/14/18 05:20
[2018-05-16] MEDS: Bacitracin/Neomycin/Polymyxin 30GM OINT TOP SCH ×2 (08:41→17:04)
[2018-05-16] MEDS: Enoxaparin 40 mg Syringe SC SCH (08:41)
[2018-05-16] MEDS: Magnesium Oxide 400 mg Tab UD PO SCH (08:42)
[2018-05-16] MEDS: Ammonium Lactate 12% Cream (140 g) TOP SCH ×2 (08:42→21:50)
--- NOTE | 2018-05-16 15:47 | CP.PCM.PN ---
Subjective - Date & Time of Evaluation Date of Evaluation: 05/16/18 Time of Evaluation: 11:20 - Subjective Subjective: Patient seen and examined. Denied any complaint. Objective - Vital Signs/Intake and Output Vital Signs (last 24 hours): Temp Pulse Resp BP Pulse Ox 97.7 F 74 18 148/81 99 05/16/18 07:44 05/16/18 08:42 05/16/18 07:44 05/16/18 08:42 05/16/18 07:44 - Medications Medications: Current Medications Amlodipine Besylate (Norvasc) 10 mg PO DAILY [facility] Last Admin: 05/16/18 08:42 Dose: 10 mg Aspirin (Aspirin Chewable) 81 mg PO DAILY [facility] Last Admin: 05/16/18 08:42 Dose: 81 mg Atorvastatin Calcium (Lipitor) 40 mg PO HS [facility] Last Admin: 05/15/18 21:21 Dose: 40 mg Bisacodyl (Dulcolax) 5 mg PO DAILY PRN PRN Reason: Constipation Last Admin: 05/03/18 09:07 Dose: 5 mg Diphenhydramine HCl (Benadryl) 25 mg PO Q6 PRN PRN Reason: Itching / Pruritus Last Admin: 05/13/18 17:25 Dose: 25 mg Enalapril Maleate (Vasotec) 20 mg PO BID [facility] Last Admin: 05/16/18 08:42 Dose: 20 mg Enoxaparin Sodium (Lovenox) 40 mg SC DAILY [facility]; Protocol Last Admin: 05/16/18 08:41 Dose: 40 mg Lactic Acid (Lac-Hydrin 12% Cream (140 G)) 1 ea TOP Q12 [facility] Last Admin: 05/16/18 08:42 Dose: 1 applic Magnesium Oxide (Mag-Ox) 400 mg PO DAILY [facility] Last Admin: 05/16/18 08:42 Dose: 400 mg Neomycin/Polymyxin/Bacitracin (Neosporin Antibiotic Oint) 1 applic TOP BID [facility] Last Admin: 05/16/18 08:41 Dose: 1 applic Temazepam (Restoril) 15 mg PO HS PRN PRN Reason: Insomnia Last Admin: 05/13/18 21:49 Dose: 15 mg Zinc Sulfate (Zinc Sulfate 220 Mg Cap) 220 mg PO DAILY [facility] Last Admin: 05/16/18 08:42 Dose: 220 mg - Labs Labs: 05/14/18 05:20 10/10/18 05:20 - Constitutional Appears: No Acute Distress - Head Exam Head Exam: ATRAUMATIC - Eye Exam Eye Exam: absent: Scleral icterus - ENT Exam ENT Exam: Mucous Membranes Moist - Neck Exam Neck Exam: absent: Meningismus - Respiratory Exam Respiratory Exam: absent: Rales, Rhonchi, Wheezes, Respiratory Distress - Cardiovascular Exam Cardiovascular Exam: REGULAR RHYTHM, +S1, +S2 - GI/Abdominal Exam GI & Abdominal Exam: Soft. 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 He was transferred to Acute Rehab on 04/22/18 for continuation of PT. 1. Status post cerebrovascular accident Continue PT /OT / speech therapy continue ASA, Statin monitor and control BP 2. Hypertension BP stable continue Enalapril and Norvasc 3. HLD (hyperlipidemia) continue Lipitor 4.DVT prophylaxis Lovenox 40mg SC daily
[2018-05-17 06:56] LABS: HEMOGLOBIN 13.3 g/dL (12.0-18.0); MEAN CELL VOLUME 83.1 fl (80.0-94.0); MEAN CORPUSCULAR HEMOGLOBIN 27.3 pg (27.0-31.0); MEAN CORPUSCULAR HGB CONC 32.9 g/dL (33.0-37.0); RBC 4.87 Mil/uL (4.40-5.90); RED CELL DISTRIBUTION WIDTH 13.2 % (11.5-14.5); WHITE BLOOD COUNT 9.3 K/uL (4.8-10.8)
[2018-05-17 07:05] LABS: BLOOD UREA NITROGEN 21 mg/dl (9-20); CALCIUM 12.8 mg/dL (8.4-10.2); GFR NON-AFRICAN AMERICAN > 60
[2018-05-17] MEDS: Enoxaparin 40 mg Syringe SC SCH (08:27)
[2018-05-17] MEDS: Ammonium Lactate 12% Cream (140 g) TOP SCH ×2 (08:27→21:33)
[2018-05-17] MEDS: Bacitracin/Neomycin/Polymyxin 30GM OINT TOP SCH ×2 (08:28→17:17)
[2018-05-17] MEDS: Magnesium Oxide 400 mg Tab UD PO SCH (08:28)
[2018-05-18] MEDS: Enoxaparin 40 mg Syringe SC SCH (08:23)
[2018-05-18] MEDS: Ammonium Lactate 12% Cream (140 g) TOP SCH ×2 (08:24→21:54)
[2018-05-18] MEDS: Magnesium Oxide 400 mg Tab UD PO SCH (08:25)
[2018-05-18] MEDS: Bacitracin/Neomycin/Polymyxin 30GM OINT TOP SCH ×2 (08:25→17:12)
[2018-05-18] MEDS ORDERED: Oxycodone/Acetaminophen 5/325 mg Tab PO PRN (20:04)
[2018-05-19] MEDS: Ammonium Lactate 12% Cream (140 g) TOP SCH ×2 (08:53→21:24)
[2018-05-19] MEDS: Enoxaparin 40 mg Syringe SC SCH (08:54)
[2018-05-19] MEDS: Magnesium Oxide 400 mg Tab UD PO SCH (08:54)
[2018-05-19] MEDS: Bacitracin/Neomycin/Polymyxin 30GM OINT TOP SCH ×2 (08:54→17:09)
--- NOTE | 2018-05-19 11:14 | CP.PCM.PN ---
Subjective - Date & Time of Evaluation Date of Evaluation: 05/19/18 Time of Evaluation: 11:00 - Subjective Subjective: Patient seen and examinedc bedside .Feeling better , participating with PT and motivated . Weakness to left side much improved. Complains of left shoulder pain with PT Hemodynamically stable, afebrile No acute issues overnight. Objective - Vital Signs/Intake and Output Vital Signs (last 24 hours): Temp Pulse Resp BP Pulse Ox 97.0 F L 91 H 20 147/68 99 05/19/18 09:13 05/19/18 09:13 05/19/18 09:13 05/19/18 09:13 05/19/18 09:13 - Medications Medications: Current Medications Acetaminophen (Tylenol 325mg Tab) 650 mg PO Q6 PRN PRN Reason: Pain, Mild (1-3) Amlodipine Besylate (Norvasc) 10 mg PO DAILY [facility] Last Admin: 05/19/18 08:56 Dose: 10 mg Aspirin (Aspirin Chewable) 81 mg PO DAILY [facility] Last Admin: 05/19/18 08:55 Dose: 81 mg Atorvastatin Calcium (Lipitor) 40 mg PO HS [facility] Last Admin: 05/18/18 21:54 Dose: 40 mg Bisacodyl (Dulcolax) 5 mg PO DAILY PRN PRN Reason: Constipation Last Admin: 05/03/18 09:07 Dose: 5 mg Diphenhydramine HCl (Benadryl) 25 mg PO Q6 PRN PRN Reason: Itching / Pruritus Last Admin: 05/13/18 17:25 Dose: 25 mg Enalapril Maleate (Vasotec) 20 mg PO BID [facility] Last Admin: 05/19/18 08:55 Dose: 20 mg Enoxaparin Sodium (Lovenox) 40 mg SC DAILY [facility]; Protocol Last Admin: 05/19/18 08:54 Dose: 40 mg Ibuprofen (Motrin Tab) 600 mg PO Q6 PRN PRN Reason: Pain, moderate (4-7) Lactic Acid (Lac-Hydrin 12% Cream (140 G)) 1 ea TOP Q12 [facility] Last Admin: 05/19/18 08:53 Dose: 1 applic Magnesium Oxide (Mag-Ox) 400 mg PO DAILY [facility] Last Admin: 05/19/18 08:54 Dose: 400 mg Neomycin/Polymyxin/Bacitracin (Neosporin Antibiotic Oint) 1 applic TOP BID [facility] Last Admin: 05/19/18 08:54 Dose: 1 applic Oxycodone/Acetaminophen (Percocet 5/325 Mg Tab) 1 tab PO Q6 PRN PRN Reason: Pain, severe (8-10) Stop: 05/21/18 20:05 Temazepam (Restoril) 15 mg PO HS PRN PRN Reason: Insomnia Last Admin: 05/13/18 21:49 Dose: 15 mg Zinc Sulfate (Zinc Sulfate 220 Mg Cap) 220 mg PO DAILY [facility] Last Admin: 05/19/18 08:54 Dose: 220 mg - Labs Labs: 05/17/18 05:30 05/17/18 05:30 - Constitutional Appears: Non-toxic, No Acute Distress - Head Exam Head Exam: ATRAUMATIC, NORMAL INSPECTION, NORMOCEPHALIC - Eye Exam Eye Exam: EOMI, Normal appearance, PERRL Pupil Exam: NORMAL ACCOMODATION - ENT Exam ENT Exam: Mucous Membranes Moist, Normal Exam - Neck Exam Neck Exam: Full ROM, Normal Inspection - Respiratory Exam Respiratory Exam: Clear to Ausculation Bilateral, NORMAL BREATHING PATTERN. absent: Rales, Rhonchi, Wheezes - Cardiovascular Exam Cardiovascular Exam: REGULAR RHYTHM, RRR, +S1, +S2. absent: JVD - GI/Abdominal Exam GI & Abdominal Exam: Soft, Normal Bowel Sounds. absent: Distended, Guarding, Rebound - Rectal Exam Rectal Exam: Deferred - Extremities Exam Extremities Exam: Full ROM, Normal Capillary Refill, Normal Inspection. absent: Joint Swelling, Pedal Edema - Back Exam Back Exam: NORMAL INSPECTION - Neurological Exam Neurological Exam: Alert, Awake Neuro motor strength exam: Right Upper Extremity: 5, Left Lower Extremity: 5, Right Lower Extremity: 5 Additional comments: left facial droop LUE 3/5 power , increased tonus - Psychiatric Exam Psychiatric exam: Normal Affect - Skin Skin Exam: Dry, Normal Color, Warm Assessment and Plan - Assessment and Plan (Free Text) Assessment: 57 yo male with no significant PMH was initially admitted at [facility] because of Right MCA CVA on 04/17/18. He was transferred to Acute Rehab on 04/22/18 for continuation of PT. At present participating with PT and weakness to left side improving Complains of pain to left shoulder Anticipated d/c date 05/23 1. Status post cerebrovascular accident-- improving Continue PT /OT / speech therapy continue ASA, Statin monitor and control BP Lidoderm patch to left shoulder for pain , warm compresses , PT and Po meds PRN 2. Hypertension BP stable continue Enalapril and Norvasc 3. HLD (hyperlipidemia) continue Lipitor 4.DVT prophylaxis Lovenox 40mg SC daily
[2018-05-19] MEDS: Lidocaine 5% Patch TD SCH (13:46)
[2018-05-20 06:00] LABS: HEMOGLOBIN 13.1 g/dL (12.0-18.0); MEAN CELL VOLUME 83.3 fl (80.0-94.0); MEAN CORPUSCULAR HEMOGLOBIN 27.7 pg (27.0-31.0); MEAN CORPUSCULAR HGB CONC 33.2 g/dL (33.0-37.0); RBC 4.73 Mil/uL (4.40-5.90); RED CELL DISTRIBUTION WIDTH 12.7 % (11.5-14.5); WHITE BLOOD COUNT 8.8 K/uL (4.8-10.8)
[2018-05-20 06:39] LABS: BLOOD UREA NITROGEN 28 mg/dl (9-20); CALCIUM 12.8 mg/dL (8.4-10.2); GFR NON-AFRICAN AMERICAN > 60
[2018-05-20] MEDS: Lidocaine 5% Patch TD SCH (08:11)
[2018-05-20] MEDS: Bacitracin/Neomycin/Polymyxin 30GM OINT TOP SCH (08:11)
[2018-05-20] MEDS: Ammonium Lactate 12% Cream (140 g) TOP SCH ×2 (08:11→21:14)
[2018-05-20] MEDS: Enoxaparin 40 mg Syringe SC SCH (08:13)
[2018-05-20] MEDS: Magnesium Oxide 400 mg Tab UD PO SCH (08:14)
[2018-05-20 20:02] VITALS: O2SAT 98
[2018-05-21 08:20] VITALS: BP 140/65; PULSE 85; RESP 19; TEMP 98
[2018-05-21] MEDS: Ammonium Lactate 12% Cream (140 g) TOP SCH (08:20)
[2018-05-21] MEDS: Enoxaparin 40 mg Syringe SC SCH (08:20)
[2018-05-21] MEDS: Lidocaine 5% Patch TD SCH (08:21)
[2018-05-21] MEDS: Magnesium Oxide 400 mg Tab UD PO SCH (08:22)
--- NOTE | 2018-05-21 10:04 | CP.PCM.PN ---
Objective - Vital Signs/Intake and Output Vital Signs (last 24 hours): Temp Pulse Resp BP Pulse Ox 98.0 F 85 19 140/65 98 05/21/18 08:19 05/21/18 08:19 05/21/18 08:19 05/21/18 08:20 05/21/18 08:19 - Medications Medications: Current Medications Acetaminophen (Tylenol 325mg Tab) 650 mg PO Q6 PRN PRN Reason: Pain, Mild (1-3) Amlodipine Besylate (Norvasc) 10 mg PO DAILY [facility] Last Admin: 05/21/18 08:20 Dose: 10 mg Aspirin (Aspirin Chewable) 81 mg PO DAILY [facility] Last Admin: 05/21/18 08:22 Dose: 81 mg Atorvastatin Calcium (Lipitor) 40 mg PO HS [facility] Last Admin: 05/20/18 21:14 Dose: 40 mg Bisacodyl (Dulcolax) 5 mg PO DAILY PRN PRN Reason: Constipation Last Admin: 05/03/18 09:07 Dose: 5 mg Diphenhydramine HCl (Benadryl) 25 mg PO Q6 PRN PRN Reason: Itching / Pruritus Last Admin: 05/13/18 17:25 Dose: 25 mg Enalapril Maleate (Vasotec) 20 mg PO BID [facility] Last Admin: 05/21/18 08:22 Dose: 20 mg Enoxaparin Sodium (Lovenox) 40 mg SC DAILY [facility]; Protocol Last Admin: 05/21/18 08:20 Dose: 40 mg Ibuprofen (Motrin Tab) 600 mg PO Q6 PRN PRN Reason: Pain, moderate (4-7) Lactic Acid (Lac-Hydrin 12% Cream (140 G)) 1 ea TOP Q12 [facility] Last Admin: 05/21/18 08:20 Dose: 1 applic Lidocaine (Lidoderm) 1 ea TD DAILY [facility] Last Admin: 05/21/18 08:21 Dose: 1 ea Magnesium Oxide (Mag-Ox) 400 mg PO DAILY [facility] Last Admin: 05/21/18 08:22 Dose: 400 mg Oxycodone/Acetaminophen (Percocet 5/325 Mg Tab) 1 tab PO Q6 PRN PRN Reason: Pain, severe (8-10) Stop: 05/21/18 20:05 Temazepam (Restoril) 15 mg PO HS PRN PRN Reason: Insomnia Last Admin: 05/13/18 21:49 Dose: 15 mg Zinc Sulfate (Zinc Sulfate 220 Mg Cap) 220 mg PO DAILY [facility] Last Admin: 05/21/18 08:20 Dose: 220 mg - Labs Labs: 05/20/18 05:20 05/20/18 05:20 Assessment and Plan - Assessment and Plan (Free Text) Assessment: 57 yo male with no significant PMH was initially admitted at [facility] because of Right MCA CVA on 04/17/18. He was transferred to Acute Rehab on 04/22/18 for continuation of PT. At present participating with PT and weakness to left side improving Complains of pain to left shoulder Anticipated d/c date 05/23 1. Status post cerebrovascular accident-- improving Continue PT /OT / speech therapy continue ASA, Statin monitor and control BP Lidoderm patch to left shoulder for pain , warm compresses , PT and Po meds PRN 2. Hypertension BP stable continue Enalapril and Norvasc 3. HLD (hyperlipidemia) continue Lipitor 4.DVT prophylaxis Lovenox 40mg SC daily
--- NOTE | 2018-05-21 11:11 | CP.PCM.DIS ---
Provider - Provider Date of Admission: 04/22/18 21:21 Attending physician: Dexter Whittington MD Primary care physician: None Consults: PT / OT / speech Neurology consult cardiology consult psychiatry consult Physiatry consult Time Spent in preparation of Discharge (in minutes): 15 Hospital Course - Lab Results Lab Results: Most Recent Lab Values WBC 8.8 K/uL (4.8-10.8) 05/20/18 05:20 RBC 4.73 Mil/uL (4.40-5.90) 05/20/18 05:20 Hgb 13.1 g/dL (12.0-18.0) 05/20/18 05:20 Hct 39.4 % (35.0-51.0) 05/20/18 05:20 MCV 83.3 fl (80.0-94.0) 05/20/18 05:20 MCH 27.7 pg (27.0-31.0) 05/20/18 05:20 MCHC 33.2 g/dL (33.0-37.0) 05/20/18 05:20 RDW 12.7 % (11.5-14.5) 05/20/18 05:20 Plt Count 184 K/uL (130-400) 05/20/18 05:20 Sodium 138 mmol/l (132-148) 05/20/18 05:20 Potassium 4.2 MMOL/L (3.6-5.0) 05/20/18 05:20 Chloride 107 mmol/L (98-107) 05/20/18 05:20 Carbon Dioxide 26 mmol/L (22-30) 05/20/18 05:20 Anion Gap 9 (10-20) L 05/20/18 05:20 BUN 28 mg/dl (9-20) H 05/20/18 05:20 Creatinine 1.2 mg/dl (0.8-1.5) 05/20/18 05:20 Est GFR ( Amer) > 60 05/20/18 05:20 Est GFR (Non-Af Amer) > 60 05/20/18 05:20 Random Glucose 108 mg/dL (75-110) 05/20/18 05:20 Calcium 12.8 mg/dL (8.4-10.2) H 05/20/18 05:20 - Hospital Course Hospital Course: 57 yo male with no significant PMH was initially admitted at [facility] because of Right MCA CVA on 04/17/18 with left side weakness. He than was transferred to Acute Rehab on 04/22/18 for continuation of PT. He participated very well with PT with significant improvement on his weakness espexcially LLE during this admission PT/ OT / speech, physiatry , cardiology ,psychiatry were consulted . HIs BP meds were optimized for better BP control and at present taking Norvasc 10 mg QD and vasotec 10 mg PO BID He is on ASa, Statin as well for stroke prevention He complained of pain to left shoulder due to increased muscle tone and Flexeril with Lidoderm patch was started .He is hemodynamically stabkle, afebrile Will d/c to [facility] today for continuation of physical therapy 1. Status post cerebrovascular accident-- improving Will d/c to [facility] for continuation of PT Continue PT /OT / speech therapy continue ASA, Statin monitor and control BP Lidoderm patch to left shoulder for pain , warm compresses , PT and Po meds PRN 2. Hypertension BP stable continue Enalapril and Norvasc 3. HLD (hyperlipidemia) continue Lipitor 4.DVT prophylaxis Lovenox 40mg SC daily Discharge Exam - Head Exam Head Exam: ATRAUMATIC, NORMAL INSPECTION, NORMOCEPHALIC - Eye Exam Eye Exam: EOMI, Normal appearance, PERRL Pupil Exam: NORMAL ACCOMODATION - ENT Exam ENT Exam: Mucous Membranes Moist, Normal Exam - Neck Exam Neck exam: Full Rom, Normal Inspection - Respiratory Exam Respiratory Exam: Clear to PA & Lateral, NORMAL BREATHING PATTERN. absent: Rales, Rhonchi, Wheezes - Cardiovascular Exam Cardiovascular Exam: REGULAR RHYTHM, RRR, +S1, +S2. absent: JVD - GI/Abdominal Exam GI & Abdominal Exam: Normal Bowel Sounds, Soft. absent: Distended, Guarding, Rebound, Tenderness - Rectal Exam Rectal Exam: Deferred - Extremities Exam Extremities exam: normal capillary refill, normal inspection, pedal pulses present - Back Exam Back exam: NORMAL INSPECTION - Neurological Exam Neurological exam: Alert, CN II-XII Intact, Oriented x3 Additional comments: left facial droop LUE 3/5 LLE 4/5 - Psychiatric Exam Psychiatric exam: Normal Affect - Skin Skin Exam: Dry, Normal Color, Warm Discharge Plan - Follow Up Plan Condition: GOOD Disposition: REHAB FACILITY/REHAB UNIT Patient education suggested?: Yes
--- NOTE | 2018-05-21 12:09 | CP.PCM.PN ---
Subjective - Date & Time of Evaluation Date of Evaluation: 05/21/18 Time of Evaluation: 09:00 - Subjective Subjective: no acute complaints at present Objective - Vital Signs/Intake and Output Vital Signs (last 24 hours): Temp Pulse Resp BP Pulse Ox 98.0 F 85 19 140/65 98 05/21/18 08:19 05/21/18 08:19 05/21/18 08:19 05/21/18 08:20 05/21/18 08:19 - Medications Medications: Current Medications Acetaminophen (Tylenol 325mg Tab) 650 mg PO Q6 PRN PRN Reason: Pain, Mild (1-3) Amlodipine Besylate (Norvasc) 10 mg PO DAILY [facility] Last Admin: 05/21/18 08:20 Dose: 10 mg Aspirin (Aspirin Chewable) 81 mg PO DAILY [facility] Last Admin: 05/21/18 08:22 Dose: 81 mg Atorvastatin Calcium (Lipitor) 40 mg PO HS [facility] Last Admin: 05/20/18 21:14 Dose: 40 mg Bisacodyl (Dulcolax) 5 mg PO DAILY PRN PRN Reason: Constipation Last Admin: 05/03/18 09:07 Dose: 5 mg Diphenhydramine HCl (Benadryl) 25 mg PO Q6 PRN PRN Reason: Itching / Pruritus Last Admin: 05/13/18 17:25 Dose: 25 mg Enalapril Maleate (Vasotec) 20 mg PO BID [facility] Last Admin: 05/21/18 08:22 Dose: 20 mg Enoxaparin Sodium (Lovenox) 40 mg SC DAILY [facility]; Protocol Last Admin: 05/21/18 08:20 Dose: 40 mg Ibuprofen (Motrin Tab) 600 mg PO Q6 PRN PRN Reason: Pain, moderate (4-7) Lactic Acid (Lac-Hydrin 12% Cream (140 G)) 1 ea TOP Q12 [facility] Last Admin: 05/21/18 08:20 Dose: 1 applic Lidocaine (Lidoderm) 1 ea TD DAILY [facility] Last Admin: 05/21/18 08:21 Dose: 1 ea Magnesium Oxide (Mag-Ox) 400 mg PO DAILY [facility] Last Admin: 05/21/18 08:22 Dose: 400 mg Oxycodone/Acetaminophen (Percocet 5/325 Mg Tab) 1 tab PO Q6 PRN PRN Reason: Pain, severe (8-10) Stop: 05/21/18 20:05 Temazepam (Restoril) 15 mg PO HS PRN PRN Reason: Insomnia Last Admin: 05/13/18 21:49 Dose: 15 mg Zinc Sulfate (Zinc Sulfate 220 Mg Cap) 220 mg PO DAILY [facility] Last Admin: 05/21/18 08:20 Dose: 220 mg - Labs Labs: 05/20/18 05:20 05/20/18 05:20 - Head Exam Head Exam: ATRAUMATIC, NORMAL INSPECTION, NORMOCEPHALIC - Eye Exam Eye Exam: EOMI, Normal appearance, PERRL Pupil Exam: NORMAL ACCOMODATION - ENT Exam ENT Exam: Mucous Membranes Moist, Normal Exam - Neck Exam Neck Exam: Full ROM, Normal Inspection - Respiratory Exam Respiratory Exam: NORMAL BREATHING PATTERN - Cardiovascular Exam Cardiovascular Exam: REGULAR RHYTHM - GI/Abdominal Exam GI & Abdominal Exam: Soft, Normal Bowel Sounds - Rectal Exam Rectal Exam: NORMAL INSPECTION - Exam External exam: NORMAL EXTERNAL EXAM - Extremities Exam Extremities Exam: Full ROM, Normal Capillary Refill, Normal Inspection - Back Exam Back Exam: NORMAL INSPECTION - Neurological Exam Neurological Exam: Alert, Awake Neuro motor strength exam: Left Upper Extremity: 2/1, Right Upper Extremity: 3, Left Lower Extremity: 2/1, Right Lower Extremity: 3 - Psychiatric Exam Psychiatric exam: Normal Affect, Normal Mood - Skin Skin Exam: Dry, Intact Assessment and Plan (1) DVT prophylaxis Status: Acute (2) HLD (hyperlipidemia) Status: Chronic (3) Status post cerebrovascular accident Assessment & Plan: plan fo rpt, ot therapy for DC to [facility] Status: Acute
--- NOTE | 2018-05-21 12:10 | CP.PCM.PN ---
Subjective - Date & Time of Evaluation Date of Evaluation: 05/20/18 Time of Evaluation: 12:00 - Subjective Subjective: no acute complaints at present Objective - Vital Signs/Intake and Output Vital Signs (last 24 hours): Temp Pulse Resp BP Pulse Ox 98.0 F 85 19 140/65 98 05/21/18 08:19 05/21/18 08:19 05/21/18 08:19 05/21/18 08:20 05/21/18 08:19 - Medications Medications: Current Medications Acetaminophen (Tylenol 325mg Tab) 650 mg PO Q6 PRN PRN Reason: Pain, Mild (1-3) Amlodipine Besylate (Norvasc) 10 mg PO DAILY [facility] Last Admin: 05/21/18 08:20 Dose: 10 mg Aspirin (Aspirin Chewable) 81 mg PO DAILY [facility] Last Admin: 05/21/18 08:22 Dose: 81 mg Atorvastatin Calcium (Lipitor) 40 mg PO HS [facility] Last Admin: 05/20/18 21:14 Dose: 40 mg Bisacodyl (Dulcolax) 5 mg PO DAILY PRN PRN Reason: Constipation Last Admin: 05/03/18 09:07 Dose: 5 mg Diphenhydramine HCl (Benadryl) 25 mg PO Q6 PRN PRN Reason: Itching / Pruritus Last Admin: 05/13/18 17:25 Dose: 25 mg Enalapril Maleate (Vasotec) 20 mg PO BID [facility] Last Admin: 05/21/18 08:22 Dose: 20 mg Enoxaparin Sodium (Lovenox) 40 mg SC DAILY [facility]; Protocol Last Admin: 05/21/18 08:20 Dose: 40 mg Ibuprofen (Motrin Tab) 600 mg PO Q6 PRN PRN Reason: Pain, moderate (4-7) Lactic Acid (Lac-Hydrin 12% Cream (140 G)) 1 ea TOP Q12 [facility] Last Admin: 05/21/18 08:20 Dose: 1 applic Lidocaine (Lidoderm) 1 ea TD DAILY [facility] Last Admin: 05/21/18 08:21 Dose: 1 ea Magnesium Oxide (Mag-Ox) 400 mg PO DAILY [facility] Last Admin: 05/21/18 08:22 Dose: 400 mg Oxycodone/Acetaminophen (Percocet 5/325 Mg Tab) 1 tab PO Q6 PRN PRN Reason: Pain, severe (8-10) Stop: 05/21/18 20:05 Temazepam (Restoril) 15 mg PO HS PRN PRN Reason: Insomnia Last Admin: 05/13/18 21:49 Dose: 15 mg Zinc Sulfate (Zinc Sulfate 220 Mg Cap) 220 mg PO DAILY [facility] Last Admin: 05/21/18 08:20 Dose: 220 mg - Labs Labs: 05/20/18 05:20 05/20/18 05:20 - Head Exam Head Exam: ATRAUMATIC, NORMAL INSPECTION, NORMOCEPHALIC - Eye Exam Eye Exam: EOMI, Normal appearance, PERRL Pupil Exam: NORMAL ACCOMODATION - ENT Exam ENT Exam: Mucous Membranes Moist, Normal Exam - Neck Exam Neck Exam: Full ROM, Normal Inspection - Respiratory Exam Respiratory Exam: NORMAL BREATHING PATTERN - Cardiovascular Exam Cardiovascular Exam: REGULAR RHYTHM - GI/Abdominal Exam GI & Abdominal Exam: Soft, Normal Bowel Sounds - Rectal Exam Rectal Exam: NORMAL INSPECTION - Exam External exam: NORMAL EXTERNAL EXAM - Extremities Exam Extremities Exam: Full ROM, Normal Capillary Refill - Back Exam Back Exam: NORMAL INSPECTION - Neurological Exam Neurological Exam: Alert, Awake Neuro motor strength exam: Left Upper Extremity: 2/1, Left Lower Extremity: 2/1 - Psychiatric Exam Psychiatric exam: Normal Affect, Normal Mood - Skin Skin Exam: Dry Assessment and Plan (1) DVT prophylaxis Status: Acute (2) HLD (hyperlipidemia) Status: Chronic (3) Status post cerebrovascular accident Assessment & Plan: to continue with physical, occupational therapy program, speech and rec Status: Acute
== END 2018-05-21 18:00 | DRG 12 ==
PROVIDERS: ADMIT Internal Medicine; ATTEND Internal Medicine
PROC: F07Z9FZ Gait Training/Functional Ambulation Treatment using Assistive, Adaptive, Supportive or Protective Equipment (ICD-10-PCS; principal; 2018-04-22)
PROC: F07L6GZ Therapeutic Exercise Treatment of Musculoskeletal System - Lower Back / Lower Extremity using Aerobic Endurance and Conditioning Equipment (ICD-10-PCS; 2018-04-22)
PROC: F07 Physical Rehabilitation and Diagnostic Audiology, Rehabilitation, Motor Treatment (ICD-10-PCS; 2018-04-22)
PROC: F08Z1FZ Dressing Techniques Treatment using Assistive, Adaptive, Supportive or Protective Equipment (ICD-10-PCS; 2018-04-22)
PROC: F06Z6ZZ Communicative/Cognitive Integration Skills Treatment (ICD-10-PCS; 2018-04-22)
PROC: F07Z5FZ Bed Mobility Treatment using Assistive, Adaptive, Supportive or Protective Equipment (ICD-10-PCS; 2018-04-22)
PROC: F07Z8FZ Transfer Training Treatment using Assistive, Adaptive, Supportive or Protective Equipment (ICD-10-PCS; 2018-04-22)
PROC: F08Z2FZ Grooming/Personal Hygiene Treatment using Assistive, Adaptive, Supportive or Protective Equipment (ICD-10-PCS; 2018-04-22)
DX: I69.354 Hemiplegia and hemiparesis following cerebral infarction affecting left non-dominant side (principal); E78.5 Hyperlipidemia, unspecified; K59.00 Constipation, unspecified; I69.322 Dysarthria following cerebral infarction; I69.392 Facial weakness following cerebral infarction; Z87.891 Personal history of nicotine dependence; I10 Essential (primary) hypertension